=== PATIENT | female | born 1935 | race Caucasian/White ===

== ENCOUNTER → 2016-06-24 | Outpatient (CLI) | payer BC ==
[~2016-06-24] MED LIST: ADVIN25050 INH; ALBUAER2 INH; ASPEC81 PO; CHOL20009 PO; EFF75 PO; FAMO20TA11 PO; LEVO75TA5 PO; LPT40 PO; LSN5 PO; METO50TA17 PO; OMEG10007 PO; PLV75 PO; XNX5 PO
[2016-06-24 14:31] LABS: HEMATOCRIT 39.6 % (37-47); MEAN CELL VOLUME 87.8 fL (80-100); MEAN CORPUSCULAR HGB CONC 33.1 g/dl (32-36); MEAN PLATELET VOLUME 11.3 fL (7.4-10.4); PLATELET COUNT 285 K/uL (130-400); RED BLOOD COUNT 4.51 M/uL (4.2-5.4); WHITE BLOOD COUNT 7.97 K/uL (4.8-10.8)
[2016-06-24 15:09] LABS: ALT/SGPT 29 U/L (12-78); AST/SGOT 22 U/L (15-37); BLOOD UREA NITROGEN 14 mg/dl (7-18); CALCIUM 8.3 mg/dl (8.5-10.1); CARBON DIOXIDE 27 mmol/L (21-32); CHLORIDE 107 mmol/L (98-107); CREATININE 0.88 mg/dl (0.60-1.20); GLUCOSE 86 mg/dl (70-99); SODIUM 142 mmol/L (136-145)
[2016-06-24 15:12] LABS: ALB/GLOB RATIO 1.1 (0.9-2); ALKALINE PHOSPHATASE 138 U/L (45-117)
== END | disposition home or self-care (01) ==
LOC: C.LAB1850 13:46
PROVIDERS: ATTEND Physician Assistant
DX: I25.10 Atherosclerotic heart disease of native coronary artery without angina pectoris (principal)

== ENCOUNTER → 2016-07-24 | Outpatient (CLI) | payer BC ==
[2016-07-24 09:50] LABS: CHOLESTEROL/HDL RATIO 3.8; THYROID STIMULATING HORMONE 2.89 uIu/ml (0.300-4.500)
== END | disposition home or self-care (01) ==
LOC: C.LAB1850 08:37
PROVIDERS: ATTEND Internal Medicine
DX: E03.9 Hypothyroidism, unspecified (principal); E78.5 Hyperlipidemia, unspecified

== ENCOUNTER → 2017-01-07 | Outpatient (CLI) | payer BC ==
[2017-01-07 12:24] LABS: BASO % 0.4 %; BASO ABS # 0.03 K/uL (0-0.2); COMPLETE YES; HEMATOCRIT 40.4 % (37-47); IG% 0.4 %; LYMPH % 20.4 %; LYMPH ABS # 1.66 K/uL (1.2-3.4); MEAN CELL VOLUME 88.4 fL (80-100); MEAN CORPUSCULAR HEMOGLOBIN 29.8 pg (25-34); MEAN CORPUSCULAR HGB CONC 33.7 g/dl (32-36); MEAN PLATELET VOLUME 11.3 fL (7.4-10.4); MONO % 8.4 %; NEUT % 67.4 %; PLATELET COUNT 212 K/uL (130-400); RED BLOOD COUNT 4.57 M/uL (4.2-5.4); WHITE BLOOD COUNT 8.13 K/uL (4.8-10.8)
[2017-01-07 13:26] LABS: ALT/SGPT 26 U/L (12-78); BLOOD UREA NITROGEN 18 mg/dl (7-18); BUN/CREATININE RATIO 20.1 (10-20); CALCIUM 9.2 mg/dl (8.5-10.1); CARBON DIOXIDE 25 mmol/L (21-32); CHLORIDE 105 mmol/L (98-107); CHOLESTEROL 143 mg/dl (0-200); CREATININE 0.87 mg/dl (0.60-1.20); GLUCOSE 93 mg/dl (70-99); POTASSIUM 4.4 mmol/L (3.5-5.1); SODIUM 138 mmol/L (136-145); TRIGLYCERIDES 165 mg/dl (0-150); VERY LOW DENSITY LIPOPROT CALC 33 mg/dl
[2017-01-07 13:36] LABS: ALB/GLOB RATIO 1.2 (0.9-2); ALKALINE PHOSPHATASE 123 U/L (45-117); AST/SGOT 25 U/L (15-37); CHOLESTEROL/HDL RATIO 3.3; HDL CHOLESTEROL 43 mg/dl; LDL CHOLESTEROL CALCULATED 67 mg/dl
== END | disposition home or self-care (01) ==
LOC: C.LAB1850 10:00
PROVIDERS: ATTEND Physician Assistant Medical
DX: I25.10 Atherosclerotic heart disease of native coronary artery without angina pectoris (principal); E03.9 Hypothyroidism, unspecified; E78.5 Hyperlipidemia, unspecified; I10 Essential (primary) hypertension

== ENCOUNTER → 2017-05-21 | Outpatient (CLI) | payer BC ==
[2017-05-21 09:35] LABS: HEMOGLOBIN 13.3 g/dL (12.0-16.0); MEAN CELL VOLUME 86.2 fL (80-100); MEAN CORPUSCULAR HEMOGLOBIN 28.7 pg (25-34); MEAN CORPUSCULAR HGB CONC 33.3 g/dl (32-36); PLATELET COUNT 289 K/uL (130-400); RED CELL DISTRIBUTION WIDTH CV 13.8 % (11.5-14.5); WHITE BLOOD COUNT 7.68 K/uL (4.8-10.8)
[2017-05-21 10:09] LABS: BLOOD UREA NITROGEN 14 mg/dl (7-18); CALCIUM 8.4 mg/dl (8.5-10.1); CARBON DIOXIDE 26 mmol/L (21-32); CHOLESTEROL 136 mg/dl (0-200); CREATININE 0.87 mg/dl (0.60-1.20); GLUCOSE 99 mg/dl (70-99); SODIUM 138 mmol/L (136-145)
[2017-05-21 10:20] LABS: LDL CHOLESTEROL CALCULATED 62 mg/dl
== END | disposition home or self-care (01) ==
LOC: C.LAB1850 08:33
PROVIDERS: ATTEND Internal Medicine
DX: I25.10 Atherosclerotic heart disease of native coronary artery without angina pectoris (principal); E03.9 Hypothyroidism, unspecified; I10 Essential (primary) hypertension; M25.50 Pain in unspecified joint

== ENCOUNTER → 2017-11-05 | Outpatient (CLI) | payer BC ==
[~2017-11-05] MED LIST changes: -ASPEC81 PO; +ASPI-320 PO; +LISI-730 PO; -LSN5 PO
== END | disposition home or self-care (01) ==
LOC: C.LABBFT 07:45
PROVIDERS: ATTEND Internal Medicine
DX: R39.15 Urgency of urination (principal)

== ENCOUNTER 2018-03-21 10:34 | Observation (INO) ==
[2018-03-21] MEDS ORDERED: ONDANSETRON INJ 2 MG/ML 2 ML VIAL IV STA (10:59)
[2018-03-21] MEDS ORDERED: KETOROLAC TROMETHAMINE 15 MG/ML VIAL IV STA (11:03)
[2018-03-21] MEDS ORDERED: SODIUM CHLORIDE 0.9% 1000ML 500 ML IV ONE (11:03)
--- NOTE | 2018-03-21 11:47 | Emergency Department Note ---
Entered by [place] acting as a scribe for Huber Webber DO History of Present Illness General Chief complaint: Illness Stated complaint: STOMACH SICK, JOINTS HURT, HEAD HURTS/PRESSURE Time Seen by Provider: 03/21/18 10:56 Source: patient History of Present Illness Onset (ago): day(s) (last night) Location: head, abdomen, upper extremity (joints) and lower extremity (joints) Pain Consistency: + constant Quality: + other (headaches, body/joint aches) Associated symptoms: + nausea/vomiting and + other (abdominal pain) The patient is an 82 year old female who presents to the Emergency Room with complaints of a constant �splitting� headache and body/joint aches beginning last night. The patient also reports diffuse abdominal pain, nausea and vomiting beginning last night that she is still experiencing. She notes subjective low-grade fevers. She denies chest pain or cough but does note that she is clearing her throat frequently. She states that she has chronically been short of breath for the past couple years. She states that she tried Kary-Bessy , peppermint, and Gatorade but has not seen a physician. She also notes that she took a dose of prescribed tramadol last night. She states that she has been drinking fluids but only ate two crackers today. She reports that she was started on a Macrobid prescription for a UTI yesterday, noting that she has taken two doses. She reports a history of hiatal hernia, hysterectomy, and cholecystectomy. She states that her PCP is Dr. Pro April Tesfaye. Home Medications Home Medications Medication Instructions Recorded Confirmed Type albuterol sulfate [Ventolin HFA] 2 puff INHALATION DAILY PRN 03/21/18 03/21/18 History aspirin 81 mg PO QAM 03/21/18 03/21/18 History atorvastatin 40 mg PO QAM 03/21/18 03/21/18 History clopidogrel 75 mg PO QAM 03/21/18 03/21/18 History fluticasone-salmeterol [Advair 1 puff INHALATION BID 03/21/18 03/21/18 History Diskus] levothyroxine 100 mcg PO QAM 03/21/18 03/21/18 History lisinopril 5 mg PO QAM 03/21/18 03/21/18 History metoprolol succinate 50 mg PO BID 03/21/18 03/21/18 History omega [id number] oil [Fish Oil] 1 cap PO QAM 03/21/18 03/21/18 History omeprazole 20 mg PO QAM 03/21/18 03/21/18 History venlafaxine 75 mg PO 1630 03/21/18 03/21/18 History Allergies Allergy/AdvReac Type Severity Reaction Status Date / Time amoxicillin Allergy Intermediate RASH-ITCHIN Verified 03/21/18 11:23 G Penicillins Allergy Intermediate RASH-ITCHIN Verified 03/21/18 11:23 G Past Med/Surg History Social History Current Living Situation: Alone Other Information That Helps Us Care for You: No Feels Safe at Home: Yes Safety Concerns: Feels Safe At This Time Smoking Status: Never smoker Do You Dip or Chew Tobacco: No Second Hand Exposure: No Tobacco Cessation Education Requested by Patient: No Hx Alcohol Use: No Hx Substance Use: No Beliefs That Will Affect Care: None Preferred Language: Welsh Communication Ability: Effective Hoop Punch Operator Helper Required: No Review of Systems See HPI for pertinent positives & negatives. and A total of 10 systems reviewed and were otherwise negative Physical Exam Vital Signs Vital Signs - 24 hr 03/21/18 10:42 03/21/18 11:50 03/21/18 12:45 Temperature 36.4 C L Temperature Source Oral Sepsis Recent Fever Within 48 Hours No Sepsis New/Unexplained Change in Mental Status No Sepsis Action Taken by Nursing No Action Required Pulse Rate 96 H 85 Pulse Rate [Right Finger] 84 83 Pulse Rhythm [Right Finger] Regular Regular Pulse Strength [Right Finger] Normal Normal Respiratory Rate 17 20 20 Respiratory Effort / Characteristics Non-Labored Non-Labored Spontaneous Non-Labored Spontaneous Respiratory Depth Normal Normal Normal Respiratory Pattern Regular Regular Blood Pressure 149/71 H Blood Pressure [Left Arm] 129/69 155/81 H Blood Pressure Mean 97 Blood Pressure Mean [Left Arm] 89 105 Blood Pressure Position Sitting Blood Pressure Position [Left Arm] Sitting Sitting Pulse Oximetry 94 94 94 Oxygen Delivery Method Room Air Room Air Nasal Cannula Oxygen Flow Rate 2 03/21/18 12:47 03/21/18 14:00 03/21/18 14:15 Temperature Temperature Source Sepsis Recent Fever Within 48 Hours Sepsis New/Unexplained Change in Mental Status Sepsis Action Taken by Nursing Pulse Rate Pulse Rate [Right Finger] 83 77 Pulse Rhythm [Right Finger] Regular Regular Pulse Strength [Right Finger] Normal Normal Respiratory Rate 20 20 Respiratory Effort / Characteristics Non-Labored Spontaneous Non-Labored Spontaneous Respiratory Depth Normal Normal Respiratory Pattern Regular Regular Blood Pressure Blood Pressure [Left Arm] 155/81 H 124/66 Blood Pressure Mean Blood Pressure Mean [Left Arm] 105 85 Blood Pressure Position Blood Pressure Position [Left Arm] Sitting Sitting Pulse Oximetry 94 98 Oxygen Delivery Method Nasal Cannula Nasal Cannula Nasal Cannula Oxygen Flow Rate 2 2 2 03/21/18 15:06 Temperature 36.4 C L Temperature Source Oral Sepsis Recent Fever Within 48 Hours Sepsis New/Unexplained Change in Mental Status Sepsis Action Taken by Nursing Pulse Rate Pulse Rate [Right Finger] 77 Pulse Rhythm [Right Finger] Pulse Strength [Right Finger] Respiratory Rate 20 Respiratory Effort / Characteristics Respiratory Depth Respiratory Pattern Blood Pressure Blood Pressure [Left Arm] 134/76 Blood Pressure Mean Blood Pressure Mean [Left Arm] 95 Blood Pressure Position Blood Pressure Position [Left Arm] Pulse Oximetry 98 Oxygen Delivery Method Nasal Cannula Oxygen Flow Rate 2 GENERAL: Patient is awake alert in no acute distress patient is resting comfortably and showing no signs of anxiety EYES: The conjunctivae are clear. The pupils are round and reactive. EARS, NOSE, MOUTH AND THROAT: The nose is without any evidence of any deformity. Mucous membranes are moist tongue is midline NECK: The neck is nontender and supple. RESPIRATORY: Normal respiratory effort is noted there is no evidence of wheezing rhonchi or rales CARDIOVASCULAR: Regular rate and rhythm noted there no murmurs rubs or gallops normal S1 normal S2 GASTROINTESTINAL: The abdomen is soft. Bowel sounds are present in all quadrants. Abdomen is nontender MUSCULOSKELETAL/EXTREMITIES: There is no evidence of gross deformity full range of motion is noted in the hips and shoulders SKIN: There is no obvious evidence of any rash. There are no petechiae, pallor or cyanosis noted. NEUROLOGIC: Patient is awake alert and oriented x3 strength is symmetric patellar reflexes are 2+ bilaterally Course 1058: Past medical records reviewed. The patient was evaluated in room C5, and a complete history and physical examination were performed. 1153: The patient states that her pain has not significantly improved. 1300: I updated the patient on current results. 1342: Dr. Ramirez - [facility] Hospitalist was notified of the patient�s condition and will evaluate the patient for hospitalization. Consultations Consultation #1: Dr. Ramirez - [facility] Hospitalist was notified of the patient�s condition and will evaluate the patient for hospitalization. Time: 13:42 Administered Medications Heparin Sodium (Porcine) (Heparin Sodium (Porcine)) 5,000 units SQ Q8 ENRIQUE Stop: 04/20/18 15:29 Last Admin: 03/21/18 16:00 Dose: 5,000 units Sodium Chloride (Nss 1000ml) 1,000 mls @ 80 mls/hr IV .[id number] ENRIQUE Stop: 03/22/18 03:49 Last Admin: 03/21/18 15:33 Dose: 80 mls/hr Venlafaxine HCl (Effexor Extended Release) 75 mg PO DAILY@1630 ENRIQUE Stop: 04/20/18 16:29 Last Admin: 03/21/18 15:40 Dose: 75 mg Discontinued Medications Sodium Chloride (Nss 1000ml) 500 mls @ 999 mls/hr IV .Q31M ONE Stop: 03/21/18 11:33 Last Infusion: 03/21/18 13:12 Dose: Admin: 03/21/18 11:22 Dose: 999 mls/hr Promethazine HCl 12.5 mg/ (Sodium Chloride) 50.5 mls @ 204 mls/hr IV NOW STA Stop: 03/21/18 12:36 Last Infusion: 03/21/18 12:49 Dose: Admin: 03/21/18 12:31 Dose: 204 mls/hr Ceftriaxone Sodium (Rocephin) 1,000 mg in 50 mls @ 100 mls/hr IV NOW STA Stop: 03/21/18 13:22 Last Infusion: 03/21/18 15:21 Dose: 0 mls/hr Admin: 03/21/18 13:17 Dose: 100 mls/hr Ioversol (Optiray 320 100ml) 94 ml IV ONCE PRN PRN Reason: Interaction Checking Stop: 03/25/18 13:10 Last Admin: 03/21/18 13:12 Dose: 94 ml Ketorolac Tromethamine (Toradol) 15 mg IV NOW STA Stop: 03/21/18 11:04 Last Admin: 03/21/18 11:28 Dose: 15 mg Morphine Sulfate (Morphine Sulfate) 4 mg IV NOW STA Stop: 03/21/18 11:56 Last Admin: 03/21/18 12:00 Dose: 4 mg Ondansetron HCl (Zofran) 4 mg IV NOW STA Stop: 03/21/18 11:00 Last Admin: 03/21/18 11:22 Dose: 4 mg Medical Decision Making Differential Diagnosis Differential diagnosis: Etiologies such as appendicitis, diverticulitis, PUD, biliary pathology, UTI, pancreatitis, obstruction, mesenteric ischemia, aortic pathology, infections, inflammatory bowel disease, renal colic, as well as others were entertained. Medical Records Attestation: I reviewed the patient's medical records. Home Medications Current Medication List: was personally reviewed by me Laboratory Data Attestation: I reviewed the patient's lab results. Result diagrams: 03/21/18 11:15 03/21/18 11:15 Lab Results 03/21/18 03/21/18 03/21/18 Range/Units 11:11 11:15 11:15 WBC 21.46 H (4.8-10.8) K/uL RBC 4.59 (4.2-5.4) M/uL Hgb 13.1 (12.0-16.0) g/dL Hct 40.6 (37-47) % MCV 88.5 (80-100) fL MCH 28.5 (25-34) pg MCHC 32.3 (32-36) g/dL RDW Std Deviation 43.9 (36.4-46.3) fL RDW Coeff of Juan Manuel 13.6 (11.5-14.5) % Plt Count 197 (130-400) K/uL MPV (7.4-10.4) fL Immature Gran % (Auto) 0.2 % Neut % (Auto) 89.8 % Lymph % (Auto) 4.6 % [place] % (Auto) 3.5 % Eos % (Auto) 1.7 % Baso % (Auto) 0.2 % Immature Gran # (Auto) 0.05 H (0.00-0.02) K/uL Neut # (Auto) 19.03 H (1.4-6.5) K/uL Lymph # (Auto) 0.98 L (1.2-3.4) K/uL [place] # (Auto) 0.75 H (0.11-0.59) K/uL Eos # (Auto) 0.37 (0-0.5) K/uL Baso # (Auto) 0.04 (0-0.2) K/uL ESR (0-21) mm/hr PT 10.2 (9.0-12.0) Seconds INR 1.0 (0.9-1.1) Sodium 133 L (136-145) mmol/L Potassium 4.1 (3.5-5.1) mmol/L Chloride 101 (98-107) mmol/L Carbon Dioxide 27 (21-32) mmol/L Anion Gap 5.0 (3-11) BUN 15 (7-18) mg/dl Creatinine 0.82 (0.6-1.2) mg/dl Est Cr Clr Drug Dosing 63.9 ml/min Est GFR ( Amer) 78.3 Est GFR (Non-Af Amer) 67.6 BUN/Creatinine Ratio 18.3 (10-20) Glucose 139 H (70-99) mg/dl Calcium 8.4 L (8.5-10.1) mg/dl Total Bilirubin 0.7 (0.1-1) mg/dl AST 24 (15-37) U/L ALT 30 (12-78) U/L Alkaline Phosphatase 111 (45-117) U/L Total Creatine Kinase 123 (26-192) U/L Troponin I < 0.015 (0-0.045) ng/ml C-Reactive Protein 2.36 H (0-0.29) mg/dl Total Protein 7.5 (6.4-8.2) gm/dl Albumin 3.7 (3.4-5.0) gm/dl Globulin 3.8 (2.5-4.0) gm/dl Albumin/Globulin Ratio 1.0 (0.9-2) TSH 0.531 (0.300-4.500) uIu/ml Urine Color Urine Appearance (Clear) Urine pH (4.5-7.5) Ur Specific [place] (1.000-1.030) Urine Protein (Negative) Urine Glucose (UA) (Negative) Urine Ketones (Negative) Urine Blood (Negative) Urine Nitrite (Negative) Urine Bilirubin (Negative) Urine Urobilinogen (Negative) Ur Leukocyte Esterase (Negative) Urine WBC (Auto) (0-5) /hpf Urine RBC (Auto) (0-4) /hpf U Hyaline Cast (Auto) (0-5) /lpf U Epithel Cells (Auto) (0-5) /lpf Urine Bacteria (Auto) (Negative) 03/21/18 03/21/18 03/21/18 Range/Units 11:15 11:15 11:15 WBC (4.8-10.8) K/uL RBC (4.2-5.4) M/uL Hgb (12.0-16.0) g/dL Hct (37-47) % MCV (80-100) fL MCH (25-34) pg MCHC (32-36) g/dL RDW Std Deviation (36.4-46.3) fL RDW Coeff of Juan Manuel (11.5-14.5) % Plt Count (130-400) K/uL MPV (7.4-10.4) fL Immature Gran % (Auto) % Neut % (Auto) % Lymph % (Auto) % [place] % (Auto) % Eos % (Auto) % Baso % (Auto) % Immature Gran # (Auto) (0.00-0.02) K/uL Neut # (Auto) (1.4-6.5) K/uL Lymph # (Auto) (1.2-3.4) K/uL [place] # (Auto) (0.11-0.59) K/uL Eos # (Auto) (0-0.5) K/uL Baso # (Auto) (0-0.2) K/uL ESR 12 (0-21) mm/hr PT (9.0-12.0) Seconds INR (0.9-1.1) Sodium (136-145) mmol/L Potassium (3.5-5.1) mmol/L Chloride (98-107) mmol/L Carbon Dioxide (21-32) mmol/L Anion Gap (3-11) BUN (7-18) mg/dl Creatinine (0.6-1.2) mg/dl Est Cr Clr Drug Dosing ml/min Est GFR ( Amer) Est GFR (Non-Af Amer) BUN/Creatinine Ratio (10-20) Glucose (70-99) mg/dl Calcium (8.5-10.1) mg/dl Total Bilirubin (0.1-1) mg/dl AST (15-37) U/L ALT (12-78) U/L Alkaline Phosphatase (45-117) U/L Total Creatine Kinase (26-192) U/L Troponin I (0-0.045) ng/ml C-Reactive Protein Cancelled (0-0.29) mg/dl Total Protein (6.4-8.2) gm/dl Albumin (3.4-5.0) gm/dl Globulin (2.5-4.0) gm/dl Albumin/Globulin Ratio (0.9-2) TSH (0.300-4.500) uIu/ml Urine Color Yellow Urine Appearance Clear (Clear) Urine pH 8.0 H (4.5-7.5) Ur Specific [place] 1.020 (1.000-1.030) Urine Protein Negative (Negative) Urine Glucose (UA) Negative (Negative) Urine Ketones Negative (Negative) Urine Blood Negative (Negative) Urine Nitrite Negative (Negative) Urine Bilirubin Negative (Negative) Urine Urobilinogen Negative (Negative) Ur Leukocyte Esterase 1+ H (Negative) Urine WBC (Auto) 10-30 H (0-5) /hpf Urine RBC (Auto) 5-10 H (0-4) /hpf U Hyaline Cast (Auto) 1-5 (0-5) /lpf U Epithel Cells (Auto) >30 H (0-5) /lpf Urine Bacteria (Auto) 1+ H (Negative) Imaging Data Radiologist's Impression: Radiology results as stated below per my review and the radiologist's interpretation: CT abd pelvis IV con only CLINICAL HISTORY: 82 years-old Female presenting with pain and vomiting. TECHNIQUE: Multidetector CT of the abdomen and pelvis was performed after the administration of intravenous contrast. IV contrast: 94 mL of Optiray 320. A dose lowering technique was used consistent with the principles of ALARA (as low as reasonably achievable). COMPARISON: 11/19/2015. CT DOSE (mGy.cm): The estimated cumulative dose is 1284.90 mGy.cm. FINDINGS: Char Dust Cleaner And Salvager topogram: Cholecystectomy clips. Lung bases: Minimal dependent changes likely atelectasis. Normal heart size. No pericardial or pleural effusion. Liver: Normal morphology. Possible hemangioma along the posterior aspect of the left hepatic lobe versus perfusional variation. Geographic hepatic steatosis suggested in the right hepatic lobe, new from prior. Patent hepatic vasculature. Biliary: Mild biliary ductal prominence likely a reservoir effect in the post cholecystectomy state. Gallbladder surgically absent. Pancreas: Moderate parenchymal atrophy. Spleen: Normal. Adrenal glands: Normal. Kidneys and ureters: Normal. No hydronephrosis. Bladder: Incompletely evaluated secondary to underdistention. Pelvic organs: Uterus surgically absent. Bowel: Few diverticula in the distal sigmoid colon without associated inflammatory change. The appendix is normal. No bowel obstruction. Moderate hiatal hernia. Peritoneal cavity: No free fluid or intraperitoneal gas. Lymph nodes: No enlarged lymph nodes in the abdomen or pelvis. Vasculature: Atherosclerosis of the normal caliber abdominal aorta. IVC patent. Abdominal wall: Small fat-containing umbilical hernia. Musculoskeletal: Degenerative changes of the spine. Superior endplate compression deformity with anterior vertebral body height loss of T12 consistent with a moderate compression fracture. This is unchanged from prior. Osteopenia suggested. IMPRESSION: 1. No acute intra-abdominal pathology. 2. Possible hepatic steatosis and a geographic distribution in the right hepatic lobe. 3. Limited diverticulosis without evidence of diverticulitis. Electronically signed by: Bam Chin M.D. 03/21/2018 1:20 PM XR chest 1V portable CLINICAL HISTORY: 82 years-old Female presenting with weakness. TECHNIQUE: PA view of the chest were obtained. COMPARISON: 11/20/2015. FINDINGS: Atherosclerosis of the aortic arch. Cardiac silhouette mildly enlarged. Diffusely coarsened lung markings. Added density of the mid to lower lungs. Prominence of the bilateral paulie and pulmonary vasculature. No large effusion or pneumothorax. Osseous structures normal. Hiatal hernia suspected. Cholecystectomy clips. IMPRESSION: 1. Mild cardiomegaly with volume overload. 2. Prominence of the bilateral paulie may be vascular in etiology given the presence of pulmonary artery hypertension on prior CTA from 2016. 3. Suspected underlying chronic lung disease. Added density of the lungs may relate to overlapping soft tissue though developing edema is difficult to exclude. 4. Hiatal hernia. Electronically signed by: Bam Chin M.D. 03/21/2018 12:[address] head/brain wo con CLINICAL HISTORY: 82 years-old Female presenting with GARDINER and weakness. TECHNIQUE: Multidetector CT imaging of the head was performed without the use of intravenous contrast. IV contrast: None. A dose lowering technique was used consistent with the principles of ALARA (as low as reasonably achievable). COMPARISON: None. CT DOSE (mGy.cm): The estimated cumulative dose is 537.48 mGy.cm. FINDINGS: Char Dust Cleaner And Salvager topogram: Unremarkable. Ventricles and sulci normal in size. No hemorrhage. Periventricular and subcortical white matter hypoattenuation, nonspecific but likely indicative of chronic small vessel ischemic change. No acute territorial infarct. No mass effect or midline shift. No extra-axial fluid collection. Paranasal sinuses and mastoid air cells clear. Calvarium intact. IMPRESSION: 1. Chronic small vessel ischemic change. No acute intracranial abnormality. Electronically signed by: Bam Chin M.D. 03/21/2018 11:49 AM XR KUB CLINICAL HISTORY: 82 years-old Female presenting with vomiting. TECHNIQUE: Single supine view of the abdomen was obtained. COMPARISON: CT from 11/19/2015. FINDINGS: Cholecystectomy clips noted. Moderate stool burden throughout the right colon. Posterior small bowel gas, nonspecific. Nonobstructive bowel gas pattern. No gross pneumoperitoneum allowing for supine technique. Allowing for bowel gas and stool, no calcifications to suggest nephrolithiasis. Osseous structures normal. Lung bases clear. IMPRESSION: 1. Stool burden may suggest constipation. No gross evidence of bowel obstruction or free air. Electronically signed by: Bam Chin M.D. 03/21/2018 12:27 PM ECG Data Attestation: I personally reviewed and interpreted this ECG as follows: Indication: nausea Rate (beats per minute): 87 Rhythm: normal sinus Findings: + LBBB; no ectopy Comparison ECG Date: from (11/21/15) Change: no significant change Blood Pressure Blood Pressure Findings: Elevated blood pressure Blood Pressure Disposition: further management by hospitalist [facility] The patient is an 82-year-old female who presented to the emergency department for an evaluation of headache nausea vomiting and body aches. The patient was seen recently and started on Macrobid for urinary tract infection. The patient' s history and physical initially was very confusing. I was unsure if her nausea was a central nervous system type of nausea or GI type of nausea. The patient was treated with IV fluids and IV antiemetics. On subsequent reevaluation she started having more abdominal discomfort. I reviewed the patient's laboratory studies did reveal that she has signs of urinary tract infection despite being on Macrobid. For this reason she was further treated with IV antibiotics. I discussed the patient's laboratory and radiographic studies with her. She was found to have a very elevated white blood cell count. Given her recent antibiotic use for this persistent urinary tract infection I discussed her case with the on-call [facility] hospitalist for possible inpatient management of this infection. Impression & Plan Pyelonephritis, Nausea and vomiting, Abdominal pain Discharge Plan Visit Data *Final* Discharge Date/Time: 03/21/18 14:47 Chief Complaint: Illness Stated Complaint: STOMACH SICK, JOINTS HURT, HEAD HURTS/PRESSURE ED Provider: Huber Webber Discharge Problem: Pyelonephritis, Nausea and vomiting, Abdominal pain Patient Disposition: Admitted As Inpatient Discharge Instructions Interventions: ED Discharge Assessment Last Done: 03/21/18 14:47 The scribe's documentation has been prepared under my direction and personally reviewed by me in its entirety. I confirm that the note above accurately reflects all work, treatment, procedures, and medical decision making performed by me.
--- NOTE | 2018-03-21 11:50 | CT Scan Report ---
CT head/brain wo con CLINICAL HISTORY: 82 years-old Female presenting with GARDINER and weakness. TECHNIQUE: Multidetector CT imaging of the head was performed without the use of intravenous contrast . IV contrast: None. A dose lowering technique was used consistent with the principles of ALARA (as l ow as reasonably achievable). COMPARISON: None. CT DOSE (mGy.cm): The estimated cumulative dose is 537.48 mGy.cm. FINDINGS: Pelt Dropper topogram: Unremarkable. Ventricles and sulci normal in size. No hemorrhage. Periventricular and subcortical white matter hypo attenuation, nonspecific but likely indicative of chronic small vessel ischemic change. No acute terr itorial infarct. No mass effect or midline shift. No extra-axial fluid collection. Paranasal sinuses and mastoid air cells clear. Calvarium intact. IMPRESSION: 1. Chronic small vessel ischemic change. No acute intracranial abnormality. Electronically signed by: Bam Chin M.D. 03/21/2018 11:49 AM
[2018-03-21 11:52] LABS: Prothrombin Time 10.2 Seconds (9.0-12.0)
[2018-03-21] MEDS ORDERED: MoRPHine SULFATE 4 MG/ML 1 ML CARP\\VIAL IV STA (11:55)
[2018-03-21 11:57] LABS: Alanine Aminotransferase 30 U/L (12-78); Albumin Level 3.7 gm/dl (3.4-5.0); Aspartate Aminotransferase 24 U/L (15-37); BUN Creatinine Ratio 18.3 (10-20); Blood Urea Nitrogen 15 mg/dl (7-18); Calcium 8.4 mg/dl (8.5-10.1); Carbon Dioxide 27 mmol/L (21-32); Chloride 101 mmol/L (98-107); Creatinine Clr Calc Pharmacy 63.9 ml/min; Est GFR (African American) 78.3; Est GFR (Non-African American) 67.6; Glucose 139 mg/dl (70-99); Potassium 4.1 mmol/L (3.5-5.1); Sodium 133 mmol/L (136-145)
[2018-03-21 11:58] LABS: Hematocrit (blood only) 40.6 % (37-47); Hemoglobin 13.1 g/dL (12.0-16.0); Mean Corpuscular Hgb Conc 32.3 g/dL (32-36); Mean Corpuscular Volume 88.5 fL (80-100); RDW Coefficient of Variation 13.6 % (11.5-14.5); RDW Standard Deviation 43.9 fL (36.4-46.3); Red Blood Count 4.59 M/uL (4.2-5.4); White Blood Count 21.46 K/uL (4.8-10.8)
[2018-03-21 12:08] LABS: Alkaline Phosphatase 111 U/L (45-117); Bilirubin,Total 0.7 mg/dl (0.1-1); C Reactive Protein 2.36 mg/dl (0-0.29); Creatine Kinase 123 U/L (26-192); Globulin 3.8 gm/dl (2.5-4.0); Total Protein 7.5 gm/dl (6.4-8.2); Troponin I < 0.015 ng/ml (0-0.045)
[2018-03-21 12:13] LABS: Appearance Urine Clear (Clear); Bacteria Urine Automated 1+ (Negative); Bilirubin Urine Negative (Negative); Color Urine Yellow; Epithelial Cell Urine Auto >30 /lpf (0-5); Glucose Urine UA Negative (Negative); Ketones Urine Negative (Negative); Leukocyte Esterase Urine 1+ (Negative); Nitrite Urine Negative (Negative); Protein Urine Negative (Negative); Urobilinogen Urine Negative (Negative)
[2018-03-21] MEDS ORDERED: PROMETHAZINE HCL 12.5 MG in SODIUM CHLORIDE 0.9% 50 ML IV STA (12:22)
--- NOTE | 2018-03-21 12:27 | XRay Report ---
XR chest 1V portable CLINICAL HISTORY: 82 years-old Female presenting with weakness. TECHNIQUE: PA view of the chest were obtained. COMPARISON: 11/20/2015. FINDINGS: Atherosclerosis of the aortic arch. Cardiac silhouette mildly enlarged. Diffusely coarsened lung ismael ings. Added density of the mid to lower lungs. Prominence of the bilateral paulie and pulmonary vascula ture. No large effusion or pneumothorax. Osseous structures normal. Hiatal hernia suspected. Cholecys tectomy clips. IMPRESSION: 1. Mild cardiomegaly with volume overload. 2. Prominence of the bilateral paulie may be vascular in etiology given the presence of pulmonary jayda ry hypertension on prior CTA from 2016. 3. Suspected underlying chronic lung disease. Added density of the lungs may relate to overlapping s oft tissue though developing edema is difficult to exclude. 4. Hiatal hernia. Electronically signed by: Bam Chin M.D. 03/21/2018 12:26 PM
--- NOTE | 2018-03-21 12:29 | XRay Report ---
XR KUB CLINICAL HISTORY: 82 years-old Female presenting with vomiting. TECHNIQUE: Single supine view of the abdomen was obtained. COMPARISON: CT from 11/19/2015. FINDINGS: Cholecystectomy clips noted. Moderate stool burden throughout the right colon. Posterior small bowel gas, nonspecific. Nonobstructive bowel gas pattern. No gross pneumoperitoneum allowing for supine davis hnique. Allowing for bowel gas and stool, no calcifications to suggest nephrolithiasis. Osseous structures normal. Lung bases clear. IMPRESSION: 1. Stool burden may suggest constipation. No gross evidence of bowel obstruction or free air. Electronically signed by: Bam Chin M.D. 03/21/2018 12:27 PM
[2018-03-21 12:31] LABS: Platelet Count 197 K/uL (130-400)
[2018-03-21 12:40] LABS: Basophils # (auto) 0.04 K/uL (0-0.2); Basophils % (auto) 0.2 %; Eosinophils # (auto) 0.37 K/uL (0-0.5); Eosinophils % (auto) 1.7 %; Immature Granulocytes # (auto) 0.05 K/uL (0.00-0.02); Immature Granulocytes % (auto) 0.2 %; Lymphocytes # (auto) 0.98 K/uL (1.2-3.4); Lymphocytes % (auto) 4.6 %; Monocytes # (auto) 0.75 K/uL (0.11-0.59); Monocytes % (auto) 3.5 %; Neutrophils # (auto) 19.03 K/uL (1.4-6.5); Neutrophils % (auto) 89.8 %
[2018-03-21] MEDS ORDERED: cefTRIAXone SODIUM 1,000 MG/50 ML BAG IV STA (12:53)
[2018-03-21] MEDS ORDERED: IOVERSOL 100ml IV PRN (13:11)
--- NOTE | 2018-03-21 13:22 | CT Scan Report ---
CT abd pelvis IV con only CLINICAL HISTORY: 82 years-old Female presenting with pain and vomiting. TECHNIQUE: Multidetector CT of the abdomen and pelvis was performed after the administration of intra venous contrast. IV contrast: 94 mL of Optiray 320. A dose lowering technique was used consistent wit h the principles of ALARA (as low as reasonably achievable). COMPARISON: 11/19/2015. CT DOSE (mGy.cm): The estimated cumulative dose is 1284.90 mGy.cm. FINDINGS: Installation Helper topogram: Cholecystectomy clips. Lung bases: Minimal dependent changes likely atelectasis. Normal heart size. No pericardial or pleura l effusion. Liver: Normal morphology. Possible hemangioma along the posterior aspect of the left hepatic lobe penny yovany perfusional variation. Geographic hepatic steatosis suggested in the right hepatic lobe, new from prior. Patent hepatic vasculature. Biliary: Mild biliary ductal prominence likely a reservoir effect in the post cholecystectomy state. Gallbladder surgically absent. Pancreas: Moderate parenchymal atrophy. Spleen: Normal. Adrenal glands: Normal. Kidneys and ureters: Normal. No hydronephrosis. Bladder: Incompletely evaluated secondary to underdistention. Pelvic organs: Uterus surgically absent. Bowel: Few diverticula in the distal sigmoid colon without associated inflammatory change. The append ix is normal. No bowel obstruction. Moderate hiatal hernia. Peritoneal cavity: No free fluid or intraperitoneal gas. Lymph nodes: No enlarged lymph nodes in the abdomen or pelvis. Vasculature: Atherosclerosis of the normal caliber abdominal aorta. IVC patent. Abdominal wall: Small fat-containing umbilical hernia. Musculoskeletal: Degenerative changes of the spine. Superior endplate compression deformity with ante rior vertebral body height loss of T12 consistent with a moderate compression fracture. This is uncha nged from prior. Osteopenia suggested. IMPRESSION: 1. No acute intra-abdominal pathology. 2. Possible hepatic steatosis and a geographic distribution in the right hepatic lobe. 3. Limited diverticulosis without evidence of diverticulitis. Electronically signed by: Bam Chin M.D. 03/21/2018 1:20 PM
--- NOTE | 2018-03-21 14:41 | History & Physical Report ---
Date of Service March 21, 2018 Assessment & Plan (1) Abdominal pain: 82 y/o F Hx CAD - DC 2016, HTN, HLD, hypothyroid, asthma, hiatal hernia. The pt is currently being treated for a UTI. She presents with a primary complaint of abdominal pain and distention. She had also complained of a headache although this resolved with NSAIDS. A relative at bedside reports that she has had difficulty tolerating any food over the past few days due to bloating and pain after she eats. She describes nausea and had one episode of vomiting - denies diarrhea/constipation of fevers. Initial labs are notable for leukocytosis and a marginally (+) UA which may represent a partially treated UTI. On review of previous records, she presented in a similar manner in 2016 when she was diagnosed with an inferior DC. Her abdominal pain was thought to be an anginal equivalent. 1) Abdominal pain, bloating, N/V. This appears to be a recurrent issue and may ultimately be related to a hiatal hernia or possibly gastroparesis. Considering she had a similar presentation when she suffered an inferior DC, we will trend her troponin cont ASA, Plavix, B dee and Lipitor. Provided this is not a cardiac isssue, she may need referral to GI. 2) UTI - may be incompletely treated with Nitorfurantoin. She has leukocytosis without an additional apparent souce. We phave placed her on Ceftriaxone pending cultures. 3) HTN, HLD - cont Metoprolol, Lisinopril, Metoprolol, Atorvastatin 4) Hypothyroid - cont Synthroid Full code - Heparin prophylaxis Total time for this admit including review of labs, meds, imaging, records - discussion with pt and ER attending - 37 min Present on Admission?: Yes History of Present Illness Chief Complaint: Abdominal pain Primary Care Provider: Huber Gaviria MD 82 y/o F Hx CAD - DC 2016, HTN, HLD, hypothyroid, asthma, hiatal hernia. The pt is currently being treated for a UTI. She presents with a primary complaint of abdominal pain and distention. She had also complained of a headache although this resolved with NSAIDS. A relative at bedside reports that she has had difficulty tolerating any food over the past few days due to bloating and pain after she eats. She describes nausea and had one episode of vomiting - denies diarrhea/constipation of fevers. Initial labs are notable for leukocytosis and a marginally (+) UA which may represent a partially treated UTI. On review of previous records, she presented in a similar manner in 2016 when she was diagnosed with an inferior DC. Her abdominal pain was thought to be an anginal equivalent. PMH: 1) CAD - inferior DC 2016 - JAYLE[facility] to [facility] 2) HTN 3) Hiatal hernia 4) HLD 5) Obesity 6) Hypothyroid 7) Asthma 8) LBBB 9) Cervical spinal stenosis 10) Social: She does not drink or smoke Family: Reports her brother had CAD Allergies Allergy/AdvReac Type Severity Reaction Status Date / Time amoxicillin Allergy Intermediate RASH-ITCHIN Verified 03/21/18 11:23 G Penicillins Allergy Intermediate RASH-ITCHIN Verified 03/21/18 11:23 G Home Medications Home Medications Medication Instructions Recorded Confirmed Type albuterol sulfate [Ventolin HFA] 2 puff INHALATION DAILY PRN 03/21/18 03/21/18 History aspirin 81 mg PO QAM 03/21/18 03/21/18 History atorvastatin 40 mg PO QAM 03/21/18 03/21/18 History clopidogrel 75 mg PO QAM 03/21/18 03/21/18 History fluticasone-salmeterol [Advair 1 puff INHALATION BID 03/21/18 03/21/18 History Diskus] levothyroxine 100 mcg PO QAM 03/21/18 03/21/18 History lisinopril 5 mg PO QAM 03/21/18 03/21/18 History metoprolol succinate 50 mg PO BID 03/21/18 03/21/18 History omega 9-obm-yor-fish oil [Fish Oil] 1 cap PO QAM 03/21/18 03/21/18 History omeprazole 20 mg PO QAM 03/21/18 03/21/18 History venlafaxine 75 mg PO 1630 03/21/18 03/21/18 History Past Med/Surg History Social History Current Living Situation: Alone Other Information That Helps Us Care for You: No Feels Safe at Home: Yes Safety Concerns: Feels Safe At This Time Smoking Status: Never smoker Do You Dip or Chew Tobacco: No Second Hand Exposure: No Tobacco Cessation Education Requested by Patient: No Hx Alcohol Use: No Hx Substance Use: No Beliefs That Will Affect Care: None Preferred Language: Emirati Communication Ability: Effective Health Records Technology Teacher Required: No Review of Systems General: Denies fevers, night sweats, weight loss, weight gain ENT: Denies throat pain, nasal congestion Eyes: Denies acute visual impairment, eye pain Cardiovascular: Denies CP, palpitations, PND, orthopnea Respiratory: Denies SOB, productive cough, wheezing GI: Abdominal distention, gas, bloating and pain as above : Denies dysuria, hesitancy, frequency, hematuria Neuro: Denies lightheadedness, syncope, unilateral weakness, acute loss of balance, memory loss - reported a headache on arrival Endocrine: Denies polydypsia, polyuria Heme: Denies unexplained bruising Skin: Denies acute rash or ulcers Physical Exam 2 Vital Signs (Past 24 Hours): Last Vital Signs Temp 36.4 C L 03/21/18 10:42 Pulse 83 03/21/18 12:47 Resp 20 03/21/18 12:47 BP 155/81 H 03/21/18 12:47 Pulse Ox 94 03/21/18 12:47 Physical Exam: General: AAO x 3, no distress ENT: No erythema or exudates, no thrush Eyes: PERNELL, EOMI Head and neck: Normocephalic, atruamatic, No JVD, neck is supple. Chest/heart: Nontender, S1,2, RRR, no murmurs, no gallops Lungs: CTAB, no wheezing or crackles Abdomen: Abdominal distention and mild tenderness to palpation - no guarding Neuro: AAO x 3, speech is clear, no unilateral weakness or loss of sensation, coordination intact Musculoskeletal: No joint inflammation, muscle tenderness, FROM Skin: No acute rashes or ulcers Extremities: No clubbing, cyanosis - minimal BL edema Results & Data Diagnostic Findings CT abdomen: No acute findings CT head: No acute abnormalities EKG: LBBB _ (1) Abdominal pain Abdominal location: generalized Qualified Code(s): R10.84 - Generalized abdominal pain
[2018-03-21] MEDS ORDERED: MAGNESIUM HYDROXIDE SUSP 30 ML UDC PO PRN (15:15)
[2018-03-21] MEDS ORDERED: ACETAMINOPHEN 325 MG TAB PO PRN (15:15)
[2018-03-21] MEDS ORDERED: NITROGLYCERIN SL 0.4 MG/TAB TAB SL PRN (15:15)
[2018-03-21] MEDS ORDERED: ONDANSETRON INJ 2 MG/ML 2 ML VIAL IV PRN (15:15)
[2018-03-21] MEDS ORDERED: MoRPHine SULFATE 2 MG/ML CARP IV PRN (15:15)
[2018-03-21] MEDS ORDERED: ALUMINUM/MAGNESIUM SUSP 30 ML UDC PO PRN (15:15)
[2018-03-21] MEDS ORDERED: POLYETHYLENE (MIRALAX) 17 GM PACK PO PRN (15:15)
[2018-03-21] MEDS ORDERED: SODIUM CHLORIDE 0.9% 1000ML 1,000 ML IV SCH (15:20)
[2018-03-21] MEDS ORDERED: ALBUTEROL HFA 8 GM INHALER INH PRN (15:30)
[2018-03-21] MEDS: VENLAFAXINE HCL XR 75 MG CAPXR PO SCH (15:40)
[2018-03-21] MEDS: HEPARIN SOD 5,000 UNIT/0.5 ML VIAL SQ SCH ×2 (16:00→21:50)
[2018-03-21] MEDS: METOPROLOL SUCC 50MG EXT REL TAB PO SCH (20:58)
[2018-03-21] MEDS: FLUTICASONE/SALMETEROL 250/50 (ADVAIR) 14 PUFF/1 INHALER INH SCH (21:01)
[2018-03-22] MEDS: HEPARIN SOD 5,000 UNIT/0.5 ML VIAL SQ SCH ×3 (06:19→21:29)
[2018-03-22] MEDS: LEVOTHYROXINE SODIUM 100 MCG TABLET PO SCH (06:19)
[2018-03-22 06:46] LABS: Basophils # (auto) 0.02 K/uL (0-0.2); Basophils % (auto) 0.3 %; Eosinophils # (auto) 0.78 K/uL (0-0.5); Eosinophils % (auto) 11.7 %; Hematocrit (blood only) 35.5 % (37-47); Hemoglobin 11.5 g/dL (12.0-16.0); Immature Granulocytes # (auto) 0.01 K/uL (0.00-0.02); Immature Granulocytes % (auto) 0.2 %; Lymphocytes # (auto) 1.05 K/uL (1.2-3.4); Lymphocytes % (auto) 15.8 %; Mean Corpuscular Hgb Conc 32.4 g/dL (32-36); Mean Corpuscular Volume 89.4 fL (80-100); Mean Platelet Volume 11.7 fL (7.4-10.4); Monocytes # (auto) 0.52 K/uL (0.11-0.59); Monocytes % (auto) 7.8 %; Neutrophils # (auto) 4.26 K/uL (1.4-6.5); Neutrophils % (auto) 64.2 %; Platelet Count 143 K/uL (130-400); RDW Standard Deviation 45.9 fL (36.4-46.3); Red Blood Count 3.97 M/uL (4.2-5.4); White Blood Count 6.64 K/uL (4.8-10.8)
[2018-03-22 07:09] LABS: BUN Creatinine Ratio 13.1 (10-20); Calcium 8.2 mg/dl (8.5-10.1); Creatinine Clr Calc Pharmacy 65.7 ml/min; Est GFR (African American) 80.7; Est GFR (Non-African American) 69.6; Potassium 3.8 mmol/L (3.5-5.1)
[2018-03-22] MEDS: ASPIRIN 81 MG ECTAB PO SCH (07:52)
[2018-03-22] MEDS: FLUTICASONE/SALMETEROL 250/50 (ADVAIR) 14 PUFF/1 INHALER INH SCH ×2 (07:52→21:28)
[2018-03-22] MEDS: PANTOprazole 40 MG TAB PO SCH (07:53)
[2018-03-22] MEDS: LISINOPRIL 5 MG TAB PO SCH (07:53)
[2018-03-22] MEDS: ATORVASTATIN 40 MG TAB PO SCH (07:53)
[2018-03-22] MEDS: METOPROLOL SUCC 50MG EXT REL TAB PO SCH ×2 (07:53→21:28)
[2018-03-22] MEDS: CLOPIDOGREL BISULFATE 75 MG TAB PO SCH (07:54)
[2018-03-22] MEDS ORDERED: BISACODYL 5 MG TABEC PO ONE ×2 (08:13→11:58)
[2018-03-22] MEDS: POLYETHYLENE (MIRALAX) 17 GM PACK PO SCH (10:03)
[2018-03-22] MEDS ORDERED: PERFLUTREN LIPID MICROSPHERE (DEFINITY) IV ONE (11:34)
[2018-03-22] MEDS: SUCRALFATE 1 GM/10 ML UDC PO SCH ×3 (12:00→21:28)
[2018-03-22] MEDS: cefTRIAXone SODIUM 1,000 MG/50 ML BAG IV SCH (13:43)
[2018-03-22] MEDS: VENLAFAXINE HCL XR 75 MG CAPXR PO SCH (15:58)
--- NOTE | 2018-03-22 21:24 | Hospitalist Progress Note ---
Date of Service March 22, 2018 Assessment & Plan (1) Nausea and vomiting: episodes could be due to GERD, gastritis, hiatal hernia, or noncardiac causes (ex - ischemia from CAD) current symptoms are similar to symptoms she had with her hiatal hernia before it was repaired but also remind her of when she has had CAD issues plan - obtain lexiscan nuclear stress test if negative then outpatient GI referral to DR. Hurd for consideration of EGD of note - she does not have a gall bladder (2) Abdominal pain: see discussion above in nausea/emesis UTI could be contributing but less likely (3) Hypothyroid: cont synthroid (4) Asthma: not in exacerbation at this time cont home meds (5) E. coli UTI: has had e. coli UTI 4 times since the summer of this year unclear why the same pathogen and so frequently bladder scan 40cc PVR thus she is emptying her bladder well no colo-vesicular fistula clues on CT I discussed with her outpatient urology referral post-discharge she alludes to having a cystocele and/or rectocele these could be contributing to risk cont rocephin today; transition to oral abx tomorrow (she does not want to go back on macrobid - she blames her n/v on this but I doubt the macrobid caused the n/v) (6) CAD (coronary artery disease): lexiscan nuclear stress test tomorrow NPO after MN trops neg x 3 (7) Hiatal hernia: s/p repair at [place] in 2016 despite the repair the imaging (CT) shows at least medium sized HH again outpatient GI referral w/ DR. Hurd (8) DVT prophylaxis: heparin TID (9) Constipation: dulcolax w/ miralax today needs bowel regimen for after d/c certainly could be contributing to her chronic GI symptoms as well grand-daughter updated at bedside today Subjective patient reports recurrent episodes of nausea with emesis over the last year happens at least monthly if not more in some ways the symptoms remind her of her heart pains as in the past she did not have chest pain but frequent GI symptoms (dyspepsia, burping, etc) she mentions frequent burping at home had hiatal hernia repair at [facility] in 2016 and symptoms now also remind her to a degree of her hiatal hernia as well she follows with Dr. Hurd she is frustrated by her recurrent UTIs she has had e. coli UTI 4 times since the summer overall feels much better relative to yesterday Constitutional: + fatigue and + weakness; no fever and no chills Respiratory: + dyspnea on exertion (chronic, no change from baseline); no cough and no dyspnea Cardiovascular: no chest pain Gastrointestinal: + abdominal pain, + nausea, + vomiting and + constipation; no diarrhea/loose stools Physical Exam 2 Vital Signs (Past 24 Hours): Last Vital Signs Temp 37.1 C 03/22/18 19:09 Pulse 80 03/22/18 19:09 Resp 20 03/22/18 19:09 BP 156/78 H 03/22/18 19:09 Pulse Ox 97 03/22/18 19:09 Constitutional: + obese; no acute distress and not ill appearing ENMT: external ear and nose normal, oropharynx normal Respiratory: normal respiratory effort, lungs clear to auscultation Cardiovascular: RRR, no murmur, no edema Heart Sounds: normal S1 and normal S2 Vessels: posterior tibial pulses present and dorsalis pedis pulses present; no JVD Extremities: no pedal edema Gastrointestinal (Abdomen): normal bowel sounds, soft, nontender, no hepatosplenomegaly Psychiatric: A+Ox3, euthymic affect Results & Data Laboratory Results Laboratory Results - last 24 hr 03/22/18 03/22/18 03/22/18 06:11 06:11 06:11 WBC 6.64 D RBC 3.97 L Hgb 11.5 L Hct 35.5 L MCV 89.4 MCH 29.0 MCHC 32.4 RDW Std Deviation 45.9 RDW Coeff of Juan Manuel 14.0 Plt Count 143 MPV 11.7 H Immature Gran % (Auto) 0.2 Neut % (Auto) 64.2 Lymph % (Auto) 15.8 Crook % (Auto) 7.8 Eos % (Auto) 11.7 Baso % (Auto) 0.3 Immature Gran # (Auto) 0.01 Neut # (Auto) 4.26 Lymph # (Auto) 1.05 L Crook # (Auto) 0.52 Eos # (Auto) 0.78 H Baso # (Auto) 0.02 Sodium 142 D Potassium 3.8 Chloride 109 H Carbon Dioxide 27 Anion Gap 6.0 BUN 11 Creatinine 0.80 Est Cr Clr Drug Dosing 65.7 Est GFR ( Amer) 80.7 Est GFR (Non-Af Amer) 69.6 BUN/Creatinine Ratio 13.1 Glucose 104 H Calcium 8.2 L Magnesium 2.0 Troponin I < 0.015 _ (1) Nausea and vomiting Vomiting Intractability: non-intractable Vomiting type: unspecified Qualified Code(s): R11.2 - Nausea with vomiting, unspecified (2) Abdominal pain Abdominal location: generalized Qualified Code(s): R10.84 - Generalized abdominal pain
[2018-03-23 05:52] LABS: Hematocrit (blood only) 36.8 % (37-47); Hemoglobin 11.6 g/dL (12.0-16.0); Mean Corpuscular Hgb Conc 31.5 g/dL (32-36); Mean Corpuscular Volume 89.8 fL (80-100); Mean Platelet Volume 11.7 fL (7.4-10.4); Platelet Count 133 K/uL (130-400); RDW Coefficient of Variation 13.8 % (11.5-14.5); RDW Standard Deviation 45.4 fL (36.4-46.3); White Blood Count 6.98 K/uL (4.8-10.8)
[2018-03-23] MEDS: HEPARIN SOD 5,000 UNIT/0.5 ML VIAL SQ SCH ×3 (06:32→14:20)
[2018-03-23] MEDS: LEVOTHYROXINE SODIUM 100 MCG TABLET PO SCH (06:32)
[2018-03-23 06:34] LABS: BUN Creatinine Ratio 13.2 (10-20); Calcium 8.2 mg/dl (8.5-10.1); Creatinine Clr Calc Pharmacy 64.9 ml/min; Est GFR (African American) 79.5; Est GFR (Non-African American) 68.6; Potassium 4.1 mmol/L (3.5-5.1)
[2018-03-23] MEDS: POLYETHYLENE (MIRALAX) 17 GM PACK PO SCH (07:51)
[2018-03-23] MEDS: SUCRALFATE 1 GM/10 ML UDC PO SCH ×2 (07:52→14:16)
[2018-03-23] MEDS: FLUTICASONE/SALMETEROL 250/50 (ADVAIR) 14 PUFF/1 INHALER INH SCH (07:52)
[2018-03-23] MEDS: LISINOPRIL 5 MG TAB PO SCH (07:52)
[2018-03-23] MEDS: ATORVASTATIN 40 MG TAB PO SCH (07:53)
[2018-03-23] MEDS: ASPIRIN 81 MG ECTAB PO SCH (07:53)
[2018-03-23] MEDS: PANTOprazole 40 MG TAB PO SCH (07:53)
[2018-03-23] MEDS: CLOPIDOGREL BISULFATE 75 MG TAB PO SCH (07:53)
[2018-03-23] MEDS: METOPROLOL SUCC 50MG EXT REL TAB PO SCH (07:53)
[2018-03-23] MEDS ORDERED: REGADENOSON 0.4 MG/5 ML SYR IV ONE (09:27)
--- NOTE | 2018-03-23 13:24 | Myocardial Perfusion Study ---
Date of Service March 23, 2018 Myocardial Perfusion Study [facility] Myocardial Perfusion Study Report Procedure: 1. Myocardial perfusion study performed in multiple views/images 2. Lexiscan pharmacologic stress ECG Indications: 1. Angina 2. CAD Ordering physician: Dr. Rivers Procedural details: For the stress portion of the study, Lexiscan 0.4 mg was intravenously administered followed by a saline flush. This was followed by 11.2 mCi of technetium 99m Cardiolite, injected at 9:30 a.m. on 03/23/2018. 30 minutes following the injection, imaging of the heart was performed in multiple projections. For the rest portion of the study, 30.9 mCi technetium 99m Cardiolite was injected intravenously at 12:10 p.m. on 03/23/2018. 1 hour following the injection, imaging of the heart was performed in the same projections. Lexiscan stress ECG: Resting ECG demonstrated: Sinus rhythm at 67 bpm. LBBB. Maximum heart rate: 86 bpm Maximal, age-predicted heart rate: 61 % Resting blood pressure: 145/74 mmHg Maximum blood pressure: 158/[address] changes: None Arrhythmia: None Symptoms: None reported Findings: Rotating raw imaging demonstrated no significant lung uptake. There is no significant motion artifact. Heart size appeared normal. Myocardial perfusion demonstrated small to moderate sized area of mildly reduced uptake involving the mid to apical anterior wall, which appeared reversible in rest imaging, suggesting ischemia. There were no significant fixed defects to suggest infarct. Ejection fraction: 64 % Wall motion: Normal No significant transient ischemic dilation. Impression: 1. Abnormal myocardial perfusion study suggesting mid to apical LAD ischemia. 2. Normal wall motion and left ventricular systolic function. EF 64%. 3. No chest pain reported. 4. Indeterminate Lexiscan ECG due to left bundle-branch block. 5. Dr. Aguilar, primary hospitalist, was made aware of findings.
[2018-03-23] MEDS: cefTRIAXone SODIUM 1,000 MG/50 ML BAG IV SCH ×2 (14:15→14:21)
--- NOTE | 2018-03-27 00:32 | Discharge Summary ---
Date of Service March 23, 2018 Admission HPI Per Admitting Provider 82 y/o F Hx CAD - CA 2016, HTN, HLD, hypothyroid, asthma, hiatal hernia. The pt is currently being treated for a UTI. She presents with a primary complaint of abdominal pain and distention. She had also complained of a headache although this resolved with NSAIDS. A relative at bedside reports that she has had difficulty tolerating any food over the past few days due to bloating and pain after she eats. She describes nausea and had one episode of vomiting - denies diarrhea/constipation of fevers. Initial labs are notable for leukocytosis and a marginally (+) UA which may represent a partially treated UTI. On review of previous records, she presented in a similar manner in 2016 when she was diagnosed with an inferior CA. Her abdominal pain was thought to be an anginal equivalent. PMH: 1) CAD - inferior CA 2016 - JAYLEEN to RCA 2) HTN 3) Hiatal hernia 4) HLD 5) Obesity 6) Hypothyroid 7) Asthma 8) LBBB 9) Cervical spinal stenosis 10) Social: She does not drink or smoke Family: Reports her brother had CAD Admission Exam Per Admitting Provider General: AAO x 3, no distress ENT: No erythema or exudates, no thrush Eyes: PERNELL, EOMI Head and neck: Normocephalic, atruamatic, No JVD, neck is supple. Chest/heart: Nontender, S1,2, RRR, no murmurs, no gallops Lungs: CTAB, no wheezing or crackles Abdomen: Abdominal distention and mild tenderness to palpation - no guarding Neuro: AAO x 3, speech is clear, no unilateral weakness or loss of sensation, coordination intact Musculoskeletal: No joint inflammation, muscle tenderness, FROM Skin: No acute rashes or ulcers Extremities: No clubbing, cyanosis - minimal BL edema Principal Diagnosis Nausea and vomiting, abnormal nuclear stress test Discharge Exam Constitutional WD/WN, vitals as above Eyes PERRL, conjunctivae normal, anicteric sclerae ENMT external ear and nose normal, oropharynx normal Neck trachea midline, no thyromegaly Respiratory normal respiratory effort, lungs clear to auscultation Cardiovascular RRR, no murmur, no edema Gastrointestinal (Abdomen) normal bowel sounds, soft, nontender, no hepatosplenomegaly Musculoskeletal no cyanosis or clubbing, extremities motor strength 5/5 Skin no rashes, warm and dry Neurologic patellar DTR's 2+ bilat, sensation intact and PERRL, EOMI, accommodation nl, no face palsy, no dysarthria Psychiatric A+Ox3, euthymic affect Lymphatic no cervical or axillary lymphadenopathy Discharge Data Allergies Allergy/AdvReac Type Severity Reaction Status Date / Time amoxicillin Allergy Intermediate RASH-ITCHIN Verified 03/21/18 11:23 G Penicillins Allergy Intermediate RASH-ITCHIN Verified 03/21/18 11:23 G Consultations 03/21/18 13:42 ED Decision to Admit Stat Ordered Studies 03/21/18 10:59 CT head/brain wo con Stat 03/21/18 12:53 CT abd pelvis IV con only Stat Hospital Course (1) Abnormal stress test: nuclear stress test performed after patient presented with nausea and vomiting and epigastric pain she reported that her prior CA in 2016 presented in a similar fashion nuclear stress test was slightly abnormal in region of LAD distribution patient never had any chest pain or pressure during stay troponin was negative discussed with patient as well as with cardiology given the fact that the test was mildly abnormal and she never had symptoms, could follow up as outpatient gave patient option to stay in hospital and get heart catheterization on 03/25 or go home and follow up patient was feeling much better, she preferred to be discharged and follow up with cardiology in a week to set up heart catheterization it was noted that on prior cath she had a 50% lesion in LAD will continue statin and anti-platelet therapy (2) Nausea and vomiting: episodes could be due to GERD, gastritis, hiatal hernia, or noncardiac causes (ex - ischemia from CAD) resolved completely at the time of discharge patient eating well, ate quickly without difficulty CT shows recurrent hiatal hernia which she had repaired at [place] recommend follow up with Dr. Hurd for possible EGD (3) CAD (coronary artery disease): lexiscan nuclear stress test slightly abnormal, see above trops neg x 3 continue antiplatelet therapy (4) Abdominal pain: see discussion above in nausea/emesis resolved (5) Hypothyroid: cont synthroid (6) Asthma: not in exacerbation at this time cont home meds (7) E. coli UTI: has had e. coli UTI 4 times since the summer of this year unclear why the same pathogen and so frequently bladder scan 40cc PVR thus she is emptying her bladder well no colo-vesicular fistula clues on CT I discussed with her outpatient urology referral post-discharge she alludes to having a cystocele and/or rectocele these could be contributing to risk treated with Rocephin, follow up with PCP (8) Hiatal hernia: s/p repair at [place] in 2016 despite the repair the imaging (CT) shows at least medium sized HH again outpatient GI referral w/ DR. Hurd (9) DVT prophylaxis: heparin TID (10) Constipation: dulcolax w/ miralax moved bowels prior to discharge Total Time Total Time Spent Total Time Spent (In Minutes): 50 minutes Total Time Includes: Examination of the Patient, Discharge Planning, Medication Reconciliation, Communication With Other Providers (cardiology) and Other ( discussion with family members at the bedside, visited with patient several times) Discharge Plan Discharge Items Patient Disposition: Home - Self-Care Reason For Visit: ABD PAIN Discharge Diagnosis: Abnormal Lexiscan stress test, hiatal hernia, nausea/ vomiting Condition: Good Discharge Goals: Decrease discomfort and Diagnostic testing Specific Goals: follow up with cardiology for catheterization, follow up with Dr. Hurd Activity: Per 'Additional Instructions' section Lifting: None Bathing: No limitations Exercise/Sports: Wait until after follow-up appointment Non-emergency contact: Primary Care Provider, Email Production Specialist and City Weighmaster Call non-emergency contact if: you have any medication questions, your symptoms worsen and you have a fever Follow-up/Referrals: Huber Gaviria MD [Primary Care Provider] - 03/27/18 10:15 am (Please, follow up at Dr. Gaviria's office with Chely Win PA-C FridayMarch 27 at 10:15 am. *If you need to change this appointment, call their office at [phone].) Diet: Heart Healthy Add Provider Instructions: Medications: no changes, continue to taking your aspirin, Plavix, metoprolol, Lipitor for heart protection Nausea/vomiting: resolved, could be due to hiatal hernia need to follow up with Dr. Hurd to discuss possible repeat EGD Abnormal Lexiscan stress test very mild abnormality in the LAD territory EKG showed left bundle branch block, same as prior EKG troponin (heart enzyme) negative for three sets discussed with cardiology, they recommend follow up in office and discuss heart cath as outpatient FOLLOW UP - Dr. Gaviria on 03/27, discuss referral to cardiology and gastroenterology to have cath and EGD as outpatient Prescriptions: Continue atorvastatin 40 mg tablet 40 mg PO QAM RF: 0 fluticasone-salmeterol 250-50 mcg/dose blister with device 1 puff Inhalation BID RF: 0 venlafaxine 75 mg capsule,extended release 24hr 75 mg PO 1630 RF: 0 metoprolol succinate 50 mg tablet extended release 24 hr 50 mg PO BID RF: 0 clopidogrel 75 mg tablet 75 mg PO QAM RF: 0 aspirin 81 mg Tablet,Delayed Release (Dr/Ec) 81 mg PO QAM RF: 0 levothyroxine 100 mcg tablet 100 mcg PO QAM RF: 0 omeprazole 20 mg capsule,delayed release(DR/EC) 20 mg PO QAM RF: 0 lisinopril 5 mg Tablet 5 mg PO QAM RF: 0 albuterol sulfate 90 mcg/actuation HFA aerosol inhaler 2 puff Inhalation DAILY PRN (Reason: Shortness Of Breath Or Wheezing) RF: 0 omega 5-rgc-dgm-fish oil [Fish Oil] 1,000 mg (120 mg-180 mg) Capsule 1 cap PO QAM RF: 0 Stand-Alone Forms: [facility] Discharge Orders: Discharge Order (Routine); Ordered 03/23/18 Ordered By: Walter Aguilar Admission Data Admit Date/Time: 03/21/18 14:29 Attending Provider: Walter Aguilar Admit Provider: Parmjit Ramirez Primary Care Provider: Huber Gaviria Other Providers: Parmjit Ramirez Service: Telemetry Other Interventions: Discharge Summary Assessment (RN) Last Done: 03/23/18 14:36 DC Date/Time DO NOT enter until pt leaves facility: 03/23/18 15:09
== END 2018-03-23 15:09 | disposition home or self-care (01) ==
LOC: ED 10:34 → 2S 10:34 → SUATTDRO 14:29 → 2S 14:47

== ENCOUNTER 2018-04-01 10:23 | Observation (INO) ==
[2018-04-01] MEDS ORDERED: LIDOCAINE HCL 1% 20 ML VIAL ONE ×2 (12:36→16:50)
--- NOTE | 2018-04-01 12:39 | History & Physical Bridge Note ---
Date of Service April 01, 2018 History & Physical Bridge Note I have examined the patient, reviewed the History & Physical and in the interval since the performance of the History & Physical I have noted the following changes of clinical significance: no changes noted
--- NOTE | 2018-04-01 12:39 | Pre Anesthesia Assessment ---
Date of Service April 01, 2018 Pre Sedation Assessment Vital Signs Temp Pulse Resp Pulse Ox 04/01/18 10:47 36.4 C L 78 16 99 Cardiovascular + regular rate Respiratory + respiratory effort normal Pre-Sedation Airway Assessment Smoking Status: Never smoker Hx Sleep Apnea: No Hx Difficult Intubation: No Short, Thick Neck: No Thyromental Distance: > or= 3.5 Finger Breadths Oral Cavity: + WNL Mallampati Class: III ASA: ASA3 NPO Status Date of Last Intake of Fluids: 03/31/18 Time of Last Intake of Fluids: 19:00 Date of Last Intake of Solid Food: 03/31/18 Time of Last Intake of Solid Foods: 19:00 Procedure Planning Contraindications for Sedation: none Current Medications Reviewed: Yes Notes The planned sedation has been discussed with the patient. Informed Consent was obtained. I have identified the patient, determined the appropriateness of sedation and have assessed the patient immediately prior to the procedure. All medicine(s) and interventions are by my order.
[2018-04-01] MEDS ORDERED: HEPARIN (PORCINE) 1000 UNIT/ML 10 ML (CATH LAB USE ONLY) ONE ×2 (12:40→16:40)
[2018-04-01] MEDS ORDERED: NiCARDipine HCL INJ 2.5 MG/ML 10 ML AMP ONE ×2 (12:40→16:40)
[2018-04-01] MEDS ORDERED: MIDAZOLAM HCL 1 MG/ML 2ML VIAL ONE ×2 (12:41→16:40)
[2018-04-01] MEDS ORDERED: NITROGLYCERIN/D5W 100MCG/ML 20ML SYR ONE ×2 (12:41→16:41)
[2018-04-01] MEDS ORDERED: fentaNYL citrate 100 MCG/2 ML VIAL ONE ×2 (12:42→16:40)
--- NOTE | 2018-04-01 13:41 | Cardiac Catheterization ---
Cardiac Cath Procedure: Brief Procedure Date April 01, 2018 Pre-Procedure Diagnosis Pre-Procedure Diagnosis: Positive Stress Test AUC Score AUC Score: 8 Post-Procedure Diagnosis Post-Procedure Diagnosis: Severe CAD Procedure(s) Performed Procedure(s) Performed: Coronary Angiography and Left Heart Cath Transportation Broker Lj Romero MD Marine Resource Economist(s) none Estimated Blood Loss Estimated Blood Loss: 5ml Medication(s) Medication(s): Fentanyl, Heparin, Nicardipine, Nitroglycerin and Versed Preliminary Findings severe ostial LAD stenosis. Patent RCA stent Recommendations Recommendations: PCI without planned CABG Specimens Specimens: None Procedural Complication(s) None Disposition Recovery Room\PACU
[2018-04-01] MEDS ORDERED: ADENOSINE IV SOLN 3 MG/ML 20 ML VIAL IV ONE (17:32)
[2018-04-01] MEDS ORDERED: ALBUTEROL HFA 8 GM INHALER INH PRN (18:11)
--- NOTE | 2018-04-01 18:18 | Pre Anesthesia Assessment ---
Date of Service April 01, 2018 Pre Sedation Assessment Vital Signs Temp Pulse Resp BP Pulse Ox 04/01/18 16:30 78 16 146/69 H 95 04/01/18 16:15 76 16 144/73 H 95 04/01/18 16:00 76 16 148/72 H 98 04/01/18 15:45 75 16 136/74 94 04/01/18 15:30 75 16 143/74 H 95 04/01/18 15:15 79 16 137/66 95 04/01/18 15:00 77 16 146/67 H 96 04/01/18 14:45 76 16 141/70 H 96 04/01/18 14:30 75 16 147/64 H 94 04/01/18 14:15 69 16 141/65 H 96 04/01/18 14:00 76 16 145/75 H 97 04/01/18 13:45 77 16 148/78 H 99 04/01/18 13:28 75 16 151/74 H 99 04/01/18 10:47 36.4 C L 78 16 99 Cardiovascular RRR, no murmur, no edema Respiratory normal respiratory effort, lungs clear to auscultation Pre-Sedation Airway Assessment Smoking Status: Never smoker Hx Sleep Apnea: No Hx Difficult Intubation: No Short, Thick Neck: No Thyromental Distance: > or= 3.5 Finger Breadths Oral Cavity: + WNL Mallampati Class: III ASA: ASA3 NPO Status Date of Last Intake of Fluids: 03/31/18 Time of Last Intake of Fluids: 19:00 Date of Last Intake of Solid Food: 03/31/18 Time of Last Intake of Solid Foods: 19:00 Procedure Planning Contraindications for Sedation: none Current Medications Reviewed: Yes Notes The planned sedation has been discussed with the patient. Informed Consent was obtained. I have identified the patient, determined the appropriateness of sedation and have assessed the patient immediately prior to the procedure. All medicine(s) and interventions are by my order.
--- NOTE | 2018-04-01 18:19 | Post Anesthesia Assessment ---
Date of Service April 01, 2018 Post Sedation Assessment Vital Signs Temp Pulse Resp BP Pulse Ox 04/01/18 16:30 78 16 146/69 H 95 04/01/18 16:15 76 16 144/73 H 95 04/01/18 16:00 76 16 148/72 H 98 04/01/18 15:45 75 16 136/74 94 04/01/18 15:30 75 16 143/74 H 95 04/01/18 15:15 79 16 137/66 95 04/01/18 15:00 77 16 146/67 H 96 04/01/18 14:45 76 16 141/70 H 96 04/01/18 14:30 75 16 147/64 H 94 04/01/18 14:15 69 16 141/65 H 96 04/01/18 14:00 76 16 145/75 H 97 04/01/18 13:45 77 16 148/78 H 99 04/01/18 13:28 75 16 151/74 H 99 04/01/18 10:47 36.4 C L 78 16 99 Recovery Score Activity: Moves 4 extremities Respiration: Deep Breath/Cough Circulation: +/-20% PreAnes Value Consciousness: Fully Awake Oxygen Saturation: > 92% On Room Air Post Anesthesia Score: 10 Discharge Sedation Level of Care: Fast Track Phase II Post Sedation Plan On clinical assessment, the patient appears to have tolerated the sedation without complications. Patient is recovering as anticipated. Patient will continue to be monitored by nursing and may be discharged when sedation discharge criteria are met per below protocol. Upon Completions of procedure and additional 15 minutes continue every 5 minute vital signs and the P.A.R. score; then discharge to a Phase I or Fast Track to Phase II per the following guidelines: * Discharge Patient to appropriate Phase II area if PAR is 8 or greater or return to pre- procedure baseline. The post - procedure orders will be as directed. * If PAR score is less than 8 or not return to pre-procedure baseline then patient will follow Phase I monitoring till PAR is reached for Phase II. The Phase I may be done in procedure room or may call to secure a Phase I area. * If naloxone or flumazenil are used for reversal, hold in Phase I for continued monitoring from when last reversal dose was given for a minimum of 60 minutes or longer pending the nurse and/or physician discretion of patient condition before discharge to Phase II. Please call the Sedation Physician to re-evaluate and complete post-note for discharge to Phase II area. Do NOT discharge from procedure sedation or Phase 1 until post- sedation evaluation note is complete by procedure /sedation MD Sedation Discharge Instructions to be given to the patient at discharge to home.
--- NOTE | 2018-04-01 18:24 | Cardiac Catheterization ---
Cardiac Cath Procedure Full Procedure Date April 01, 2018 Pre-Procedure Diagnosis Pre-Procedure Diagnosis: Positive Stress Test AUC Score AUC Score: 8 Post-Procedure Diagnosis Post-Procedure Diagnosis: Severe CAD Procedure(s) Performed Procedure(s) Performed: Coronary Angiography, IVUS and Fractional Flow [place] Chief Sales Officer Lj Lopez MD Purchasing Associate(s) Nazario Estimated Blood Loss Estimated Blood Loss: 10 Medication(s) Medication(s): Fentanyl, Heparin, Lidocaine 1% and Versed Summary of Findings For full details of patient's coronary angiography please cath report dictated by Dr. Romero. Briefly, patient found to have moderate to severe ostial LAD vessel disease. Decision to further assess with IVUS. --Left main cannulated with JL 3.5 guide Whisper wire placed into distal LAD IVUS used to assess ostial LADmild diffuse calcified proximal to mid disease. 50% ostial stenosis with eccentric calcified plaque (MLA 5.0 mm2). -- Due to moderate disease on IVUS decision to proceed with FFR -- Using a doc wire and 1.5 OTW balloon, whisper wire exchanged for straight FFR wire placed into distal LAD. -- iFR 0.95 -- FFR 0.88 -- Post procedure angiography showed no apparent coronary complications. SUMMARY: 1. Moderate non-obstructive eccentric ostial LAD disease (50% by IVUS, FFR 0.88) . Hemodynamics Rest Ao:: 162/76/112 Final Ao: 158/62/98 LV: 154/15 Recommendations Recommendations: PCI without planned CABG Specimens Specimens: None Radiation Exposure (mGy) 1789 Contrast (mls) 55 Fluids (cc crystalloids) Fluids (cc crystalloids): 100 Drains Drains: none Anesthesia moderate Procedural Complication(s) None Disposition Recovery Room\PACU ACC Data: Tongue Carrier Cardiac Status Clinical evaluation leading to the procedure CAD Presenation: Positive Stress Test Anginal Classification: CCS III Heart Failure: No Cardiogenic Shock within 24 Hours: No Cardiac Arrest within 24 Hours: No Imaging Studies Past 6 Months: Yes Stress Studies Past 6 Months: Yes Stress Echocardiogram: Yes - Positive Diagnostic Physicians Name: Lj Lopez MD Status: Elective Closure Device Percutaneous Entry Location: Radial Closure Device: Radial Band Recommendations: PCI without planned CABG Intraprocedure Events Significant Disection: No Perforation: No
[2018-04-01] MEDS ORDERED: SODIUM CHLORIDE 0.9% 1000ML 1,000 ML IV SCH (18:30)
[2018-04-01] MEDS ORDERED: Nursing to Pharmacy Communication ONE (19:19)
[2018-04-01] MEDS: ACETAMINOPHEN 325 MG TAB PO PRN ×2 (19:25→23:58)
[2018-04-01] MEDS ORDERED: VENLAFAXINE HCL XR 75 MG CAPXR PO ONE (19:45)
[2018-04-01] MEDS: METOPROLOL SUCC 50MG EXT REL TAB PO SCH (20:30)
[2018-04-01] MEDS: FLUTICASONE/SALMETEROL 250/50 (ADVAIR) 14 PUFF/1 INHALER INH SCH (20:30)
[2018-04-02] MEDS ORDERED: LEVOTHYROXINE SODIUM 100 MCG TABLET PO SCH (06:30)
[2018-04-02] MEDS: FLUTICASONE/SALMETEROL 250/50 (ADVAIR) 14 PUFF/1 INHALER INH SCH (08:42)
[2018-04-02] MEDS: METOPROLOL SUCC 50MG EXT REL TAB PO SCH (08:44)
[2018-04-02] MEDS ORDERED: LISINOPRIL 5 MG TAB PO SCH (09:00)
[2018-04-02] MEDS ORDERED: ATORVASTATIN 40 MG TAB PO SCH (09:00)
[2018-04-02] MEDS ORDERED: OMEGA-3 (PURIFIED FISH OIL) 1 GM CAP PO SCH (09:00)
[2018-04-02] MEDS ORDERED: ASPIRIN 81 MG ECTAB PO SCH (09:00)
[2018-04-02] MEDS ORDERED: PANTOprazole 40 MG TAB PO SCH (09:00)
[2018-04-02] MEDS ORDERED: CLOPIDOGREL BISULFATE 75 MG TAB PO SCH (09:00)
[2018-04-02] MEDS ORDERED: VENLAFAXINE HCL XR 75 MG CAPXR PO SCH (16:30)
--- NOTE | 2018-04-09 14:33 | Cardiac Catheterization ---
Date of Service April 01, 2018 Cardiac Cath Report Cardiac Cath Report Procedure performed: Coronary angiography, left heart catheterization Staff envelope machine adjuster: Nehemiah Romero MD Indication: The patient is an 82-year-old woman with a history of percutaneous intervention to the right coronary artery and dyspnea on exertion. She recently underwent outpatient perfusion imaging was suggested a reversible defect in the anterior wall. As such she was referred for coronary angiography. Procedure in detail: The patient was informed of the risks benefits and alternatives to the intended procedure, he understood such and wished to proceed. She was taken to the cardiac catheterization suite in a fasting state. Conscious sedation was administered per protocol and the patient was monitored electrocardiographically throughout today's procedure. The right wrist area was prepped and draped in usual sterile fashion. This area was anesthetized using subcutaneous administration of a lidocaine solution. The right radial artery was then accessed using Seldinger technique, and a arterial sheath was placed at this site over a guidewire. The sheath was used to facilitate passage of the cardiac catheter for coronary angiography and left heart catheterization. Coronary angiogram was then obtained in multiple orthogonal views prior to removal of the catheter. At the conclusion of the procedure the sheath was removed and hemostasis was achieved at the access site using manual pressure. The patient tolerated procedure well, there were no immediate complications. Equipment used: 5 [place] 4 Findings: Opening aortic pressure: 136/69 mmHg Closing aortic pressure: 157/72 mmHg Left ventricular pressure: 153 over 4 mmHg Left ventricular end-diastolic pressure: 12 mmHg Coronary angiography: Left main: Left main coronary artery was normal in size and caliber and essentially divided into 4 separate arteries at its distal portion. No obstructive coronary disease in this distribution Left anterior descending: Left anterior descending was a medium-sized transapical vessel. It appeared to have a discrete 90% stenosis at its ostium. Ramus intermedius: The patient produced a very high first diagonal versus ramus intermedius branch with some luminal irregularities at its origin. Left circumflex: Left circumflex artery was a nondominant vessel. It produced a very large first OM branch and a medium-sized ongoing AV groove vessel prior to development of a second OM branch. There are luminal irregularities but no discrete stenosis in this distribution Right coronary artery: The right coronary artery had a 20% stenosis in its midportion. It was a dominant vessel. No obstructive coronary disease in this distribution. Impression: Obstructive coronary disease involving the proximal LAD Plan: Patient will be referred for percutaneous intervention involving the left anterior descending artery
--- NOTE | 2018-04-22 22:48 | Discharge Summary ---
Date of Service April 02, 2018 Admission HPI Per Admitting Provider 82-year-old female history of coronary artery disease post GA in 2016, hypertension, dyslipidemia, hypothyroidism, asthma, hiatal hernia. Seen recently in the setting of abdominal pain/bloating reminiscent of prior symptoms she had with her GA and thought to be her anginal equivalent. Scheduled to undergo diagnostic cardiac catheterization with her primary legal transcriber Dr. Romero. Discharge Data Procedures Performed Operation Date: 04/01/18 11:30 Actual Procedures p Cath, Left with Cors and Vent - Lj Romero MD s Cineradiography w/Routine Exam - Lj Romero MD Operation Date: 04/01/18 16:00 Actual Procedures p Cath, Left with Cors and Vent - Lj Lopez MD s Cineradiography w/Routine Exam - Lj Lopez MD s IVUS Coronary Single Vessel - Lj Lopez MD s Fraction Flow [place] SGL Ves - Lj Lopez MD Hospital Course (1) Abdominal pain: (2) CAD (coronary artery disease): Cardiac catheterization performed via right radial artery. Patient found to have moderate to severe ostial LAD vessel disease. Decision to further assess with IVUS. Post diagnostic angiography further assessment had to be delayed due to emergency requiring cardiac lab pack chemist. Right radial artery sheath was left in place until later in the day when procedure could be performed. Sheath was exchanged. IVUS of LAD or consistent with mild to moderate disease (MLA 5.0 mm). Decision to proceed with FFR. IFR 0.95, FFR 0.88 consistent with nonobstructive disease. In the setting of negative FFR decision made to forego PCI. Post procedure was noted to have mild ecchymosis/questionable hematoma at site of right radial artery access. Decision was made for extended observation of access site post procedure. She was admitted to telemetry service for observation overnight. She had no recurrent abdominal pain/chest pain. Right radial artery pulse intact without significant hematoma in a.m. Telemetry unremarkable. Discharge to home on prior home medications. Continue to follow-up with Dr. Romero Discharge Instructions Home Medications albuterol sulfate 2 puff INHALATION DAILY PRN 03/21/18 [History Confirmed ] aspirin 81 mg PO QAM 03/21/18 [History Confirmed 03/30/18] atorvastatin 40 mg PO QAM 03/21/18 [History Confirmed 03/30/18] fluticasone-salmeterol 1 puff INHALATION BID 03/21/18 [History Confirmed ] levothyroxine 100 mcg PO QAM 03/21/18 [History Confirmed 03/30/18] metoprolol succinate 50 mg PO BID 03/21/18 [History Confirmed 03/30/18] omeprazole 20 mg PO QAM 03/21/18 [History Confirmed 03/30/18] venlafaxine 75 mg PO 1630 03/21/18 [History Confirmed 03/30/18]
== END 2018-04-02 11:47 | disposition home or self-care (01) ==
LOC: CC 10:23 → 2S 10:23

== ENCOUNTER 2025-01-31 11:19 | Observation (INO) ==
[2025-01-31] MEDS: ACETAMINOPHEN 1,000 MG/100 ML VIAL IV STA (11:34)
[2025-01-31] MEDS: ONDANSETRON INJ 2 MG/ML 2 ML VIAL IV STA (12:15)
[2025-01-31] MEDS: MoRPHine SULFATE 2 MG/ML CARP IV STA ×2 (12:16→13:36)
--- NOTE | 2025-01-31 12:18 | XRay Report ---
XR knee RT 3V CLINICAL HISTORY: Knee trauma, no prior imaging COMPARISON: None FINDINGS: There is moderate osteoarthritis. No fracture or dislocation seen. IMPRESSION: No fracture seen. ACT 112: Negative or not required by law. Electronically signed by: Evan Balderas M.D. 01/31/2025 12:17 PM
--- NOTE | 2025-01-31 12:19 | XRay Report ---
XR shoulder RT min 2V routine CLINICAL HISTORY: Shoulder trauma, no prior imaging COMPARISON: None FINDINGS: There is an acute minimally displaced fracture proximal right humerus involving the surgic al neck and undermining the greater tuberosity. No dislocation seen at the right shoulder. IMPRESSION: Acute fracture proximal right humerus. ACT 112: Negative or not required by law. Electronically signed by: Evan Balderas M.D. 01/31/2025 12:17 PM
--- NOTE | 2025-01-31 14:20 | Emergency Department Note ---
Impression & Plan Fall, Closed right humeral fracture, Acute pain of right knee, Facial abrasion, Closed head injury ED Provider Note CHIEF COMPLAINT: Fall, right shoulder, right knee pain HISTORY OF PRESENT ILLNESS: This 89-year-old female patient presents to the emergency department via ambulance after a fall. The patient states she had been at the gas station to get gas. She walked inside the pain came back out to the gas pump when her foot got caught on the tread at the pump and caused her to fall. The patient states she landed on her right shoulder and knee and struck her face on the concrete. She denies any loss of consciousness. She states she has been feeling nauseated, but has not had any vomiting. No visual disturbances. No abdominal pain or chest pain. No shortness of breath. The patient denies any numbness or tingling. She is having significant pain at the achiness in her right shoulder. Patient was ambulatory after the event without difficulty. History provided by: Patient REVIEW OF SYSTEMS: A 10 system review of systems was performed with positives and pertinent negatives listed in the history of present illness. All other systems were reviewed and are negative. ALLERGIES: Amoxicillin, penicillin PHYSICAL EXAM: Primary Survey Airway: Intact Breathing: Normal, breath sounds equal bilaterally Circulation: Skin warm, distal pulses 2+, capillary refill less than 2 seconds Disability Pupils: Equal and reactive to light, 7mm, brisk GCS: 15, E = 4 V=5 M= 6 Motor Function: Moves all extremities. Sensory: No deficits Secondary Survey GEN: Well developed and well-nourished HEAD: Normal cephalic atraumatic EYES: Pupils round reactive to light, conjunctiva clear, extraocular movements intact, no raccoons eyes ENT: No fluid in external acoustic canals, no hemotympanum, no recinos's sign, nares patent, oropharynx clear NECK: No JVD, midline trachea, no cervical spine tenderness, C-collar in place HEART: Regular rate and rhythm LUNGS: Clear to auscultation bilaterally. CHEST: Chest wall non-tender, no bruising/deformity ABD: No Nixon-Brasher's or Morales's sign, soft, non-tender, no rebound or guarding, PELVIS: Stable to rock BACK: No step offs or deformities, T-L spine non tender : No perineal hematoma, no blood at the meatus EXT: 2+ global pulses, moving all extremities well, +5/5 muscle strength globally SKIN: Superficial abrasions on the nose and upper lip. 2.5cm laceration on the superior anterior aspect of the left knee. The edges do gape apart, but it appears that the superficial layer has been avulsed away. The edges are unable to be pulled together. No active bleeding or discharge. NEURO: CNII-XII grossly intact, no sensory deficits An order was placed for continuous shelter monitor. The monitor showed a normal sinus rhythm at a ventricular rate of 74 bpm, per my interpretation. Imaging as interpreted by myself and the radiologist revealed proximal left humerus fracture, with radiologist interpretation as above. I agree with the radiologist's findings as based upon my independent interpretation. EMERGENCY DEPARTMENT COURSE: The patient was evaluated as above. The patient presents to the emergency department after a fall. The patient landed on her right shoulder and right knee. She does have a superficial abrasion on the right knee as well as on the upper lip. These do not appear amenable to closure. IV access obtained, labs were drawn. The patient was medicated with IV acetaminophen. X-rays were completed and reviewed by myself and radiologist as noted. X-ray of the right knee was negative for acute fracture. X-ray of the right shoulder was concerning for a proximal humerus fracture. CT imaging of the head, face, and cervical spine were completed and reviewed by myself radiologist as noted. The scans were negative. Patient was medicated with IV morphine and Zofran. She did not experience significant improvement with the morphine and continued to complain of pain. She was medicated with a second dose of IV morphine. The patient was reassessed. Her pain has improved, but has not totally resolved. I did discuss the case with orthopedics. They did evaluate the patient. The patient's fracture is nonsurgical. Unfortunately, the patient lives alone. I do feel that she will have difficulty getting around. Her family member had spoken with her regarding desire to take her with her to her home in [place], but the patient is hesitant to be in a car for that long. I do feel that admission for PT/OT evaluation and consideration for rehab placement is reasonable. The patient was agreeable and would prefer to go this route. I discussed the case [facility] Please see his dictation regarding ongoing management of this patient. This visit is during a period of high volume and high acuity in the emergency department. I attest that I have personally reviewed the patient medication list. I attest that I have reviewed the patient's blood pressure and it was found to be elevated. Further management by hospitalist. GCS: 15 In the evaluation and treatment of this patient the following differential diagnoses were entertained: Fracture, dislocation, contusion, intra-abdominal, pneumothorax, intrathoracic, intracranial, neurologic, compartment syndrome, rhabdomyolysis, as well as other pathologies. The chart was completed utilizing [employer] Speech voice recognition software. Grammatical errors, random word insertions, pronoun errors, and incomplete sentences are an occasional consequence of this system due to software limitations, ambient noise, and hardware issues. Any formal questions or concerns about the content, text, or information contained within the body of this dictation should be directly addressed to the provider for clarification. Past Med/Surg History Problem List (Updated 01/31/25 @ 14:56 by Susanne Shah PA-C) Closed head injury (Acute) Facial abrasion (Acute) Acute pain of right knee (Acute) Closed right humeral fracture (Acute) Fall (Acute) Closed fracture of right proximal humerus Mitral regurgitation Pain in foot Anemia Hyperlipidemia Compression fracture Pyelonephritis (Acute) CAD (coronary artery disease) Hiatal hernia Vitamin D deficiency (Acute) S/P right coronary artery (RCA) stent placement (Acute) 5-6 YEARS AGO>FOLLOWS WITH DR. SARABIA Osteoarthritis (Acute) Mild persistent asthma (Acute) Left bundle branch block (Acute) Hypertension (Acute) Hearing loss (Acute) Gastroesophageal reflux disease (Acute) Dysphagia, pharyngeal phase (Acute) Arthralgia (Acute) Adjustment disorder with anxiety (Acute) Chronic pelvic pain in female Interstitial cystitis Hypothyroidism Obesity Type 2 diabetes mellitus, with long-term current use of insulin Depression Nausea & vomiting Lower abdominal pain Gastroparesis GERD (gastroesophageal reflux disease) Current use of proton pump inhibitor Medical History Fall Diarrhea Encounter for pre-operative examination Encounter for pre-operative examination Anxiety Hypothyroidism New onset type 1 diabetes mellitus, uncontrolled Asthma HAS NOT USED RESCUE INHALER RECENTLY Surgical History H/O total hysterectomy History of colonoscopy History of esophagogastroduodenoscopy (EGD) History of cholecystectomy History of repair of hiatal hernia History of tooth extraction History of cataract surgery S/P hernia repair Family History Mother Coronary heart disease Stroke Father Coronary heart disease Sister Diabetes Breast cancer Hypertension Brother Diabetes Other Cancer Heart disease Lung disease No family history of adverse response to anesthesia Denies family history of Ovarian cancer Prostate cancer Myocardial infarction Colorectal cancer Social History Smoking Status: Never smoker Second Hand Exposure: Yes ( A CHILD); Do You Dip or Chew Tobacco: No; Hx Alcohol Use: No Hx Substance Use: No Preferred Language: Armenian Communication Ability: Effective Visual Impairment: No Limitations Contracts Manager Required: No Beliefs That Will Affect Care: None marital status: / Current Living Situation: Alone current occupational status: retired Feels Safe at Home: Yes Childhood Exposure to Second-Hand Smoke: Yes Dental Care, Regularly: Yes Physical Activity Frequency: 1-2 Times per Week Seatbelt Use: always Sunscreen Use: No Assistive Devices: None Allergies Allergies Allergy/AdvReac Type Severity Reaction Status Date / Time amoxicillin Allergy Intermediate RASH-ITCHIN Verified 01/07/25 11:19 G Penicillins Allergy Intermediate RASH-ITCHIN Verified 01/07/25 11:19 G Home Meds Home Medications Medication Instructions Recorded Confirmed omega-3 acid ethyl esters 1 gram 1 cap PO DAILY 11/12/18 01/07/25 capsule fluticasone propionate 50 1 - 2 sprays intranasal DAILY PRN 08/24/19 01/07/25 mcg/actuation nasal Congestion #1 g spray,suspension vitamins A,C,[id number] 4,296 1 cap PO AMPM 12/25/21 01/07/25 mcg-226 mg-90 mg capsule (PreserVision AREDS) Previous Rx's Medication Instructions Recorded ondansetron HCl 4 mg tablet 4 mg PO Q6H PRN nausea and 09/29/19 (Zofran) vomiting #60 tabs pen needle, diabetic 32 gauge x #100 ea 12/16/22" (BD Ultra-Fine [place]ry Pen Needle) sertraline 50 mg tablet 50 mg PO DAILY #90 tabs 02/13/24 metoprolol succinate 25 mg 12.5 mg (1/2 x 25 mg) PO DAILY #45 05/13/24 tablet,extended release 24 hr tabs atorvastatin 40 mg tablet 40 mg PO QPM #90 tabs 05/28/24 insulin glargine U-300 conc 300 27 unit (0.09 mL) subcut DAILY #9 08/18/24 unit/mL (1.5 mL) subcutaneous pen mL ([place] SoloStar U-300 Insulin) fluticasone 250 mcg-salmeterol 50 1 inh inhalation BID #60 ea 09/28/24 mcg/dose blistr powdr for inhalation omeprazole 40 mg capsule,delayed See Rx Instructions .Route 10/11/24 release .COMPLEX #90 caps albuterol sulfate 90 mcg/actuation 1 - 2 puff inhalation Q4H PRN 11/17/24 aerosol inhaler shortness of breath or wheezing #8.5 grams lancets 28 gauge (Comfort EZ #100 ea 12/14/24 Lancets) levothyroxine 100 mcg tablet 100 mcg PO DAILY #30 tabs 12/14/24 blood sugar diagnostic (FreeStyle #300 ea 12/15/24 Lite Strips) blood-glucose meter (FreeStyle #1 ea 12/15/24 [place] Lite kit) lancets 28 gauge (FreeStyle #300 ea 12/15/24 Lancets) Results & Data (ED) Vital Signs Vital Signs - 24 hr 01/31/25 11:21 01/31/25 11:24 01/31/25 13:47 Temperature 36.6 C Temperature Source Temporal Artery Scan Pulse Rate 68 Pulse Rate [Apical] 74 Respiratory Rate 18 16 Blood Pressure [Left Arm] 187/126 H 175/82 H Blood Pressure Mean [Left Arm] 146 113 Pulse Oximetry 99 100 Sepsis Recent Fever Within 48 Hours No Sepsis New/Unexplained Change in Mental Status N/A Sepsis Action Taken by Nursing No Action Required Laboratory Data 01/31/25 11:35 01/31/25 11:35 Administered Medications Discontinued Medications Acetaminophen (Ofirmev) 1,000 mg in 100 mls @ 400 mls/hr IV NOW STA Stop: 01/31/25 11:42 Last Infusion: 01/31/25 13:51 Dose: Infused Documented By: Admin: 01/31/25 11:34 Dose: 400 mls/hr Documented By: PHILIPPE Morphine Sulfate (Morphine Sulfate 2 Mg/Ml Carp) 2 mg IV NOW STA Stop: 01/31/25 12:09 Last Admin: 01/31/25 12:16 Dose: 2 mg Documented By: PHILIPPE Morphine Sulfate (Morphine Sulfate 2 Mg/Ml Carp) 2 mg IV NOW STA Stop: 01/31/25 13:27 Last Admin: 01/31/25 13:36 Dose: 2 mg Documented By: PHILIPPE Ondansetron HCl (Ondansetron Inj 2 Mg/Ml 2 Ml Vial) 4 mg IV NOW STA Stop: 01/31/25 12:09 Last Admin: 01/31/25 12:15 Dose: 4 mg Documented By: PHILIPPE Imaging Data Radiologist's Impression: Knee X-Ray 01/31/25 11:40 XR knee RT 3V CLINICAL HISTORY: Knee trauma, no prior imaging COMPARISON: None FINDINGS: There is moderate osteoarthritis. No fracture or dislocation seen. IMPRESSION: No fracture seen. ACT 112: Negative or not required by law. Electronically signed by: Evan Balderas M.D. 01/31/2025 12:17 PM Shoulder X-Ray 01/31/25 11:40 XR shoulder RT min 2V routine CLINICAL HISTORY: Shoulder trauma, no prior imaging COMPARISON: None FINDINGS: There is an acute minimally displaced fracture proximal right humerus involving the surgical neck and undermining the greater tuberosity. No dislocation seen at the right shoulder. IMPRESSION: Acute fracture proximal right humerus. ACT 112: Negative or not required by law. Electronically signed by: Evan Balderas M.D. 01/31/2025 12:[address] 01/31/25 13:26 CT SCAN OF THE CERVICAL SPINE CLINICAL HISTORY: Fall. COMPARISON STUDY: MRI of cervical spine dated 04/09/2011. TECHNIQUE: CT scan of the cervical spine is performed from the skull base to the upper thoracic spine. Images are reviewed in the axial, sagittal, and coronal planes. IV contrast was not administered for this examination. A dose lowering technique was utilized adhering to the principles of ALARA. FINDINGS: Skeletal structures: The skeletal structures are osteopenic. There is no evidence of fracture or subluxation involving the cervical spine. Vertebral body height and alignment are maintained. Anterior osteophytes are seen throughout. The odontoid process and lateral masses are intact. The atlantoaxial articulation is preserved noting productive degenerative change. The spinous processes appear intact. There are mild chronic compression present at T1 and T2. Mild multilevel facet arthropathy is noted. Intervertebral discs: There is moderate disc space narrowing at C3-C4 and C4-C5. Mild to moderate narrowing is seen at C5-C6 and C6-C7. Central canal: Posterior disc osteophyte complexes are seen at all cervical levels between C3-C4 and C6-C7. This likely contributes to multilevel acquired compromise of the central canal. Soft tissues: The prevertebral and paraspinous soft tissues are within normal limits. The thyroid gland is atrophic. Atherosclerotic calcification is seen in the carotid bulbs. Calvarium: The visualized calvarium at the skull base appears intact. Brain parenchyma: Partially visualized brain parenchyma at the skull base is within normal limits. Sinuses and mastoids: The visualized paranasal sinuses are clear. The mastoid air cells are well pneumatized. Lung apices: Clear as visualized. IMPRESSION: 1. There is no evidence of cervical spine fracture or subluxation. 2. Osteopenia and spondylotic change as above. ACT 112: Negative or not required by law. Electronically signed by: Tristan Chase M.D. 01/31/2025 2:[address] 01/31/25 13:[address] WITHOUT CONTRAST CLINICAL HISTORY: head injury, fall COMPARISON STUDY: Head CT March 21, 2018. TECHNIQUE: A maxillofacial CT was performed without IV contrast. Coronal and sagittal reformats were viewed. Automated exposure control was utilized for the study. A dose lowering technique was utilized adhering to the principles of ALARA. FINDINGS: The globes are intact with no retrobulbar hematoma. Alignment of the temporomandibular joints is anatomic. No acute facial fracture is identified. Orbital floors are intact. There is no skull base fracture. IMPRESSION: No acute facial fracture. ACT 112: Negative or not required by law. Electronically signed by: Darrin Daily M.D. 01/31/2025 2:[address] 01/31/25 13:26 CT head/brain wo con CLINICAL HISTORY: 89 years-old Female with closed head injury, fall. Acute head injury status post fall TECHNIQUE: Multiple axial CT images of the head were obtained without contrast. A dose lowering technique was utilized adhering to the principles of ALARA. COMPARISON: Head CT 03/21/2018 FINDINGS: No acute intracranial hemorrhage, midline shift, intracranial mass, hydrocephalus, territorial ischemia or abnormal extra-axial collection. Involutional changes with chronic microvascular ischemic disease and ex vacuo ventriculomegaly again noted, progressed from prior. The calvarium is intact. The paranasal sinuses, mastoid air cells, and middle ear cavities are clear. IMPRESSION: No acute intracranial abnormality or calvarial fracture. ACT 112: Negative or not required by law. The above report was generated using voice recognition software. It may contain grammatical, syntax or spelling errors. Electronically signed by: Daniel De La Torre M.D. 01/31/2025 2:21 PM Discharge Plan Visit Data Chief Complaint: Fall Stated Complaint: FALL, R SHOULDER PAIN, NOSE BLEED, CUT ON LIP ED Provider: Bethel Chaudhry ED Midlevel Provider: Susanne Shah Discharge Problem: Fall, Closed right humeral fracture, Acute pain of right knee, Facial abrasion, Closed head injury Patient Disposition: Admitted As Inpatient Condition: Good Forms Stand Alone Forms: My [facility] [id number] Prescriptions Prescriptions: No Action (DME) pen needle, diabetic [BD Ultra-Fine Merry Pen Needle] 32 gauge x 5/32" needle See Rx Instructions [id number] .MEDSUPPLY Qty: 100 3RF Rx Instructions: Inject insulin once daily sertraline 50 mg tablet 50 mg PO DAILY Qty: 90 3RF Patient Comments: HS metoprolol succinate 25 mg tablet extended release 24 hr 12.5 mg PO DAILY Qty: 45 3RF atorvastatin 40 mg tablet 40 mg PO QPM Qty: 90 3RF insulin glargine U-300 conc [[place] SoloStar U-300 Insulin] 300 unit/mL (1.5 mL) insulin pen 27 unit subcut DAILY Qty: 9 3RF fluticasone propion-salmeterol 250-50 mcg/dose blister with device 1 inh Inhalation BID Qty: 60 3RF omeprazole 40 mg capsule,delayed release(DR/EC) See Rx Instructions .ROUTE .COMPLEX Qty: 90 3RF Dose Instruction: Take 1 capsule by mouth in the morning Rx Instructions: Take 1 capsule by mouth in the morning albuterol sulfate 90 mcg/actuation HFA aerosol inhaler 1 - 2 puff inhalation Q4H PRN (Reason: shortness of breath or wheezing) Qty: 8.5 3RF (DME) blood-glucose meter [FreeStyle [place] Lite] Kit See Rx Instructions .Route Qty: 1 1RF Rx Instructions: use to test blood sugar as directed (DME) FreeStyle Lite Strips Strip See Rx Instructions .Route Qty: 300 3RF Rx Instructions: use to test blood sugar TID (DME) lancets [FreeStyle Lancets] 28 gauge misc See Rx Instructions .Route Qty: 300 3RF Rx Instructions: use to test blood sugar TID omega-3 acid ethyl esters 1 gram capsule 1 cap PO DAILY fluticasone propionate 50 mcg/actuation spray,suspension 1 - 2 sprays intranasal DAILY PRN (Reason: Congestion) Qty: 1 Patient Comments: 1-2 sprays in each nostril ondansetron HCl [Zofran] 4 mg tablet 4 mg PO Q6H PRN (Reason: nausea and vomiting) Qty: 60 1RF (DME) lancets [Comfort EZ Lancets] 28 gauge misc See Rx Instructions .Route Qty: 100 11RF Rx Instructions: Check Blood surgar 3 times daily levothyroxine 100 mcg tablet 100 mcg PO DAILY Qty: 30 8RF PreserVision AREDS [id number] Capsule 1 cap PO AMPM Patient Comments: PLANS TO START Referrals Referrals: Pro,Huber Aguayo MD [Primary Care Provider] -
--- NOTE | 2025-01-31 14:22 | CT Scan Report ---
CT head/brain wo con CLINICAL HISTORY: 89 years-old Female with closed head injury, fall. Acute head injury status post f all TECHNIQUE: Multiple axial CT images of the head were obtained without contrast. A dose lowering tech nique was utilized adhering to the principles of ALARA. COMPARISON: Head CT 03/21/2018 FINDINGS: No acute intracranial hemorrhage, midline shift, intracranial mass, hydrocephalus, territorial ischem ia or abnormal extra-axial collection. Involutional changes with chronic microvascular ischemic disea se and ex vacuo ventriculomegaly again noted, progressed from prior. The calvarium is intact. The paranasal sinuses, mastoid air cells, and middle ear cavities are clear . IMPRESSION: No acute intracranial abnormality or calvarial fracture. ACT 112: Negative or not required by law. The above report was generated using voice recognition software. It may contain grammatical, syntax o r spelling errors. Electronically signed by: Daniel De La Torre M.D. 01/31/2025 2:21 PM
--- NOTE | 2025-01-31 14:26 | CT Scan Report ---
CT SCAN OF THE CERVICAL SPINE CLINICAL HISTORY: Fall. COMPARISON STUDY: MRI of cervical spine dated 04/09/2011. TECHNIQUE: CT scan of the cervical spine is performed from the skull base to the upper thoracic spine . Images are reviewed in the axial, sagittal, and coronal planes. IV contrast was not administered fo r this examination. A dose lowering technique was utilized adhering to the principles of ALARA. FINDINGS: Skeletal structures: The skeletal structures are osteopenic. There is no evidence of fracture or subl uxation involving the cervical spine. Vertebral body height and alignment are maintained. Anterior os teophytes are seen throughout. The odontoid process and lateral masses are intact. The atlantoaxial a rticulation is preserved noting productive degenerative change. The spinous processes appear intact. There are mild chronic compression present at T1 and T2. Mild multilevel facet arthropathy is noted. Intervertebral discs: There is moderate disc space narrowing at C3-C4 and C4-C5. Mild to moderate analia rowing is seen at C5-C6 and C6-C7. Central canal: Posterior disc osteophyte complexes are seen at all cervical levels between C3-C4 and C6-C7. This likely contributes to multilevel acquired compromise of the central canal. Soft tissues: The prevertebral and paraspinous soft tissues are within normal limits. The thyroid gla nd is atrophic. Atherosclerotic calcification is seen in the carotid bulbs. Calvarium: The visualized calvarium at the skull base appears intact. Brain parenchyma: Partially visualized brain parenchyma at the skull base is within normal limits. Sinuses and mastoids: The visualized paranasal sinuses are clear. The mastoid air cells are well pneu matized. Lung apices: Clear as visualized. IMPRESSION: 1. There is no evidence of cervical spine fracture or subluxation. 2. Osteopenia and spondylotic change as above. ACT 112: Negative or not required by law. Electronically signed by: Tristan Chase M.D. 01/31/2025 2:23 PM
--- NOTE | 2025-01-31 14:31 | CT Scan Report ---
MAXILLOFACIAL CT WITHOUT CONTRAST CLINICAL HISTORY: head injury, fall COMPARISON STUDY: Head CT March 21, 2018. TECHNIQUE: A maxillofacial CT was performed without IV contrast. Coronal and sagittal reformats were viewed. Automated exposure control was utilized for the study. A dose lowering technique was utiliz ed adhering to the principles of ALARA. FINDINGS: The globes are intact with no retrobulbar hematoma. Alignment of the temporomandibular join ts is anatomic. No acute facial fracture is identified. Orbital floors are intact. There is no skull base fracture. IMPRESSION: No acute facial fracture. ACT 112: Negative or not required by law. Electronically signed by: Darrin Daily M.D. 01/31/2025 2:30 PM
--- NOTE | 2025-01-31 14:35 | Orthopedic Consultation ---
Date of Service January 31, 2025 Assessment & Plan (1) Closed fracture of right proximal humerus: * Case/imaging reviewed and discussed with Dr Weiss * Recommend sling and non-weight bearing on right upper extremity. * Disposition: TBD * Daily treatment: Physical Therapy/ Occupational Therapy per protocol * Weight bearing status: non weight bearing on right upper extremity * Pain control * Remainder care per primary team * Will plan for outpatient follow-up in 1-2 weeks to reevaluate. History of Present Illness Reason for Consultation: . Right proximal humerus fracture Requesting Physician: . .Patient is a 89 y/o female with right proximal humerus fracture. PMH including mitral valve regurgitation, hyperlipidemia, CAD, LBBB, hypertension, GERD, type 2 diabetes with use of insulin and hypothyroidism. Presents to hospital with right shoulder and facial pain after she sustain a fall today at the gas station. Current workup including x-ray of shoulder and knee and CT and head, c- spine and facial bones. Orthopedics consulted for management recommendations. At time of exam patient was laying on stretcher with head of bed elevated. Pt was placed into a sling and had ice on her right shoulder. Pt states her right shoulder is bothersome and asked that it not be moved. Pt states her pain is improved now some after medication given. Pt states she believes her face took the brunt of her fall. Allergies Allergy/AdvReac Type Severity Reaction Status Date / Time amoxicillin Allergy Intermediate RASH-ITCHIN Verified 01/07/25 11:19 G Penicillins Allergy Intermediate RASH-ITCHIN Verified 01/07/25 11:19 G Home Medications Medication Instructions Recorded Confirmed Type omega-3 acid ethyl esters 1 gram 1 cap PO DAILY 11/12/18 01/07/25 History capsule fluticasone propionate 50 1 - 2 sprays intranasal DAILY PRN 08/24/19 01/07/25 History mcg/actuation nasal Congestion #1 g spray,suspension ondansetron HCl 4 mg tablet 4 mg PO Q6H PRN nausea and 09/29/19 01/07/25 Rx (Zofran) vomiting #60 tabs vitamins A,C,B-aqem-bqcjmv 4,296 1 cap PO AMPM 12/25/21 01/07/25 History mcg-226 mg-90 mg capsule (PreserVision AREDS) pen needle, diabetic 32 gauge x #100 ea 12/16/22 01/07/25 Rx 5/32" (BD Ultra-Fine Merry Pen Needle) sertraline 50 mg tablet 50 mg PO DAILY #90 tabs 02/13/24 01/07/25 Rx metoprolol succinate 25 mg 12.5 mg (1/2 x 25 mg) PO DAILY #45 05/13/24 01/07/25 Rx tablet,extended release 24 hr tabs atorvastatin 40 mg tablet 40 mg PO QPM #90 tabs 05/28/24 01/07/25 Rx insulin glargine U-300 conc 300 27 unit (0.09 mL) subcut DAILY #9 08/18/24 01/07/25 Rx unit/mL (1.5 mL) subcutaneous pen mL ([place] SoloStar U-300 Insulin) fluticasone 250 mcg-salmeterol 50 1 inh inhalation BID #60 ea 09/28/24 01/07/25 Rx mcg/dose blistr powdr for inhalation omeprazole 40 mg capsule,delayed See Rx Instructions .Route 10/11/24 01/07/25 Rx release .COMPLEX #90 caps albuterol sulfate 90 mcg/actuation 1 - 2 puff inhalation Q4H PRN 11/17/24 01/07/25 Rx aerosol inhaler shortness of breath or wheezing #8.5 grams lancets 28 gauge (Comfort EZ #100 ea 12/14/24 01/07/25 Rx Lancets) levothyroxine 100 mcg tablet 100 mcg PO DAILY #30 tabs 12/14/24 01/07/25 Rx blood sugar diagnostic (FreeStyle #300 ea 12/15/24 01/07/25 Rx Lite Strips) blood-glucose meter (FreeStyle #1 ea 12/15/24 01/07/25 Rx [place] Lite kit) lancets 28 gauge (FreeStyle #300 ea 12/15/24 01/07/25 Rx Lancets) Past Med/Surg History Problem List (Updated 01/31/25 @ 14:33 by Inocencia Echavarria PA-C) Closed fracture of right proximal humerus Mitral regurgitation Pain in foot Anemia Hyperlipidemia Compression fracture Pyelonephritis (Acute) CAD (coronary artery disease) Hiatal hernia Vitamin D deficiency (Acute) S/P right coronary artery (RCA) stent placement (Acute) 5-6 YEARS AGO>FOLLOWS WITH DR. SARABIA Osteoarthritis (Acute) Mild persistent asthma (Acute) Left bundle branch block (Acute) Hypertension (Acute) Hearing loss (Acute) Gastroesophageal reflux disease (Acute) Dysphagia, pharyngeal phase (Acute) Arthralgia (Acute) Adjustment disorder with anxiety (Acute) Chronic pelvic pain in female Interstitial cystitis Hypothyroidism Obesity Type 2 diabetes mellitus, with long-term current use of insulin Depression Nausea & vomiting Lower abdominal pain Gastroparesis GERD (gastroesophageal reflux disease) Current use of proton pump inhibitor Medical History Fall Diarrhea Encounter for pre-operative examination Encounter for pre-operative examination Anxiety Hypothyroidism New onset type 1 diabetes mellitus, uncontrolled Asthma HAS NOT USED RESCUE INHALER RECENTLY Surgical History H/O total hysterectomy History of colonoscopy History of esophagogastroduodenoscopy (EGD) History of cholecystectomy History of repair of hiatal hernia History of tooth extraction History of cataract surgery S/P hernia repair Family History Mother Coronary heart disease Stroke Father Coronary heart disease Sister Diabetes Breast cancer Hypertension Brother Diabetes Other Cancer Heart disease Lung disease No family history of adverse response to anesthesia Denies family history of Ovarian cancer Prostate cancer Myocardial infarction Colorectal cancer Social History Smoking Status: Never smoker Second Hand Exposure: Yes ( A CHILD); Do You Dip or Chew Tobacco: No; Hx Alcohol Use: No Hx Substance Use: No Preferred Language: Ukrainian Communication Ability: Effective Visual Impairment: No Limitations Hosted Services Analyst Required: No Beliefs That Will Affect Care: None marital status: / Current Living Situation: Alone current occupational status: retired Feels Safe at Home: Yes Childhood Exposure to Second-Hand Smoke: Yes Dental Care, Regularly: Yes Physical Activity Frequency: 1-2 Times per Week Seatbelt Use: always Sunscreen Use: No Assistive Devices: None Review of Systems All systems reviewed & are unremarkable except as noted in HPI & below. Physical Exam * General: Alert and oriented, no acute distress * Constitutional: well-developed, well-nourished. * Respiratory: Normal respiratory effort, no distress * Gastrointestinal: No tenderness to palpation, no rigidity or guarding. * Skin: No rash or lesion. Abrasions noted to her nose and upper lip. * Neurologic: Grossly normal * Musculoskeletal: Right shoulder with tenderness and limited motion due to pain. Pts right arm is in sling resting across her chest. Otherwise neurovascularly intact. Results & Data Results & Data Laboratory Results . Laboratory Results - last 24 hr 01/31/25 11:35 WBC Pending RBC Pending Hgb Pending Hct Pending MCV Pending MCH Pending MCHC Pending Plt Count Pending PT Pending INR Pending APTT Pending PTT Ratio Pending Sodium Pending Potassium Pending Chloride Pending Carbon Dioxide Pending Anion Gap Pending BUN Pending Creatinine Pending Est Cr Clr Drug Dosing Pending eGFR Pending BUN/Creatinine Ratio Pending Glucose Pending Calcium Pending Total Bilirubin Pending AST Pending ALT Pending Alkaline Phosphatase Pending Total Protein Pending Albumin Pending Globulin Pending Albumin/Globulin Ratio Pending Diagnostic Findings Knee X-Ray 01/31/25 11:40 XR knee RT 3V CLINICAL HISTORY: Knee trauma, no prior imaging COMPARISON: None FINDINGS: There is moderate osteoarthritis. No fracture or dislocation seen. IMPRESSION: No fracture seen. ACT 112: Negative or not required by law. Electronically signed by: Evan Balderas M.D. 01/31/2025 12:17 PM Shoulder X-Ray 01/31/25 11:40 XR shoulder RT min 2V routine CLINICAL HISTORY: Shoulder trauma, no prior imaging COMPARISON: None FINDINGS: There is an acute minimally displaced fracture proximal right humerus involving the surgical neck and undermining the greater tuberosity. No dislocation seen at the right shoulder. IMPRESSION: Acute fracture proximal right humerus. ACT 112: Negative or not required by law. Electronically signed by: Evan Balderas M.D. 01/31/2025 12:[address] 01/31/25 13:26 CT SCAN OF THE CERVICAL SPINE CLINICAL HISTORY: Fall. COMPARISON STUDY: MRI of cervical spine dated 04/09/2011. TECHNIQUE: CT scan of the cervical spine is performed from the skull base to the upper thoracic spine. Images are reviewed in the axial, sagittal, and coronal planes. IV contrast was not administered for this examination. A dose lowering technique was utilized adhering to the principles of ALARA. FINDINGS: Skeletal structures: The skeletal structures are osteopenic. There is no evidence of fracture or subluxation involving the cervical spine. Vertebral body height and alignment are maintained. Anterior osteophytes are seen throughout. The odontoid process and lateral masses are intact. The atlantoaxial articulation is preserved noting productive degenerative change. The spinous processes appear intact. There are mild chronic compression present at T1 and T2. Mild multilevel facet arthropathy is noted. Intervertebral discs: There is moderate disc space narrowing at C3-C4 and C4-C5. Mild to moderate narrowing is seen at C5-C6 and C6-C7. Central canal: Posterior disc osteophyte complexes are seen at all cervical levels between C3-C4 and C6-C7. This likely contributes to multilevel acquired compromise of the central canal. Soft tissues: The prevertebral and paraspinous soft tissues are within normal limits. The thyroid gland is atrophic. Atherosclerotic calcification is seen in the carotid bulbs. Calvarium: The visualized calvarium at the skull base appears intact. Brain parenchyma: Partially visualized brain parenchyma at the skull base is within normal limits. Sinuses and mastoids: The visualized paranasal sinuses are clear. The mastoid air cells are well pneumatized. Lung apices: Clear as visualized. IMPRESSION: 1. There is no evidence of cervical spine fracture or subluxation. 2. Osteopenia and spondylotic change as above. ACT 112: Negative or not required by law. Electronically signed by: Tristan Chase M.D. 01/31/2025 2:[address] 01/31/25 13:[address] WITHOUT CONTRAST CLINICAL HISTORY: head injury, fall COMPARISON STUDY: Head CT March 21, 2018. TECHNIQUE: A maxillofacial CT was performed without IV contrast. Coronal and sagittal reformats were viewed. Automated exposure control was utilized for the study. A dose lowering technique was utilized adhering to the principles of ALARA. FINDINGS: The globes are intact with no retrobulbar hematoma. Alignment of the temporomandibular joints is anatomic. No acute facial fracture is identified. Orbital floors are intact. There is no skull base fracture. IMPRESSION: No acute facial fracture. ACT 112: Negative or not required by law. Electronically signed by: Darrin Daily M.D. 01/31/2025 2:[address] 01/31/25 13:26 CT head/brain wo con CLINICAL HISTORY: 89 years-old Female with closed head injury, fall. Acute head injury status post fall TECHNIQUE: Multiple axial CT images of the head were obtained without contrast. A dose lowering technique was utilized adhering to the principles of ALARA. COMPARISON: Head CT 03/21/2018 FINDINGS: No acute intracranial hemorrhage, midline shift, intracranial mass, hydrocephalus, territorial ischemia or abnormal extra-axial collection. Involutional changes with chronic microvascular ischemic disease and ex vacuo ventriculomegaly again noted, progressed from prior. The calvarium is intact. The paranasal sinuses, mastoid air cells, and middle ear cavities are clear. IMPRESSION: No acute intracranial abnormality or calvarial fracture. ACT 112: Negative or not required by law. The above report was generated using voice recognition software. It may contain grammatical, syntax or spelling errors. Electronically signed by: Daniel De La Torre M.D. 01/31/2025 2:21 PM . PG Care Time/CCT Total # of Minutes Spent Total Time Spent with Patient: Total time spent is greater than 50% in coordination of care (as documented) at patient's floor/unit and/or counseling patient: [place] [address] IN/OBS CONSULT LVL 3,45M Patient Type New Diagnoses Closed fracture of right proximal humerus S42.201A
[2025-01-31 15:20] LABS: Alanine Aminotransferase 19.0 U/L (7-52); Albumin Globulin Ratio 1.1 (0.9-2); Albumin Level 4.2 gm/dl (3.4-5.0); Alkaline Phosphatase 116.0 U/L (34-104); Anion Gap 11.0 (3-11); Bilirubin,Total 0.9 mg/dl (0.2-1.0); Blood Urea Nitrogen 19.0 mg/dl (6-23); Calcium 9.7 mg/dl (8.6-10.3); Carbon Dioxide 24.0 mmol/L (21-32); Chloride 98.0 mmol/L (98-107); Creatinine Clr Calc Pharmacy 54.3 ml/min; Globulin 3.8 gm/dl (2.5-4.0); Glucose 326.0 mg/dl (70-99(Fasting)); Potassium 4.4 mmol/L (3.5-5.1); Sodium 133.0 mmol/L (136-145); Total Protein 8.0 gm/dl (6.0-8.3)
[2025-01-31 15:24] LABS: INR 1.0 (0.9-1.1); Partial Thromboplastin Time 25 Seconds (21-31); Prothrombin Time 10.5 Seconds (9.0-12.0)
--- NOTE | 2025-01-31 15:25 | History & Physical Report ---
Date of Service January 31, 2025 Assessment & Plan (1) Closed right humeral fracture: Plan: Assessment: 1. Status post mechanical fall with injuries discussed below: 2. Closed head injury. CT of the head and cervical spine are negative. Including negative CT of the facial bones. Falls precautions. This was a mechanical fall she tripped over a mat at the gas station with the sole of her foot falling to the ground. 3. Mild facial abrasions. 4. Acute proximal right humeral fracture. Currently in a sling. Orthopedics evaluated. Nonsurgical. Pain control. We have ordered oxycodone as well as Tylenol. We have consulted physical therapy. Falls precautions. 5. diabetes mellitus. Ordered diabetic diet and insulin sliding scale will continue approximately half of her dose of Lantus. Titrate as needed. 6. Coronary artery disease remotely. No cardiac symptoms at this time. 7. Hypertension. Home meds as appropriate. 8. Dyslipidemia. Home meds as appropriate. 9. History of GERD. Continue home meds as appropriate. Plan: As discussed above. Please refer to orders for further planning. History of Present Illness Chief Complaint: Ground floor trip and fall to ground. Right arm pain. Primary Care Provider: Huber Gaviria MD Very pleasant 89-year-old female who lives at home alone and is very independent. She was pumping her gas in her car today when she had a trip and mechanical fall to the ground. She did strike her head and face. And landed on her right shoulder/arm. In the ER she had a negative CT of the neck/cervical spine negative CT of the head she also had a negative CT of her facial bones. She had a positive plain film right shoulder x-ray consistent with a proximal right humeral fracture. Orthopedics was consulted in the ER. Given the fact the patient lives at home alone and is has uncontrolled pain after 4 mg of morphine we been asked admit the patient observation status for PT consultation and pain control. Allergies Allergy/AdvReac Type Severity Reaction Status Date / Time amoxicillin Allergy Intermediate RASH-ITCHIN Verified 01/31/25 15:19 G Penicillins Allergy Intermediate RASH-ITCHIN Verified 01/31/25 15:19 G Home Medications Medication Instructions Recorded Confirmed Type omega-3 acid ethyl esters 1 gram 1 cap PO DAILY 11/12/18 01/31/25 History capsule fluticasone propionate 50 1 - 2 sprays intranasal DAILY PRN 08/24/19 01/31/25 History mcg/actuation nasal Congestion #1 g spray,suspension vitamins A,C,B-wbpj-ojqnvq 4,296 1 cap PO AMPM 12/25/21 01/31/25 History mcg-226 mg-90 mg capsule (PreserVision AREDS) pen needle, diabetic 32 gauge x #100 ea 12/16/22 01/07/25 Rx 5/32" (BD Ultra-Fine Merry Pen Needle) sertraline 50 mg tablet 50 mg PO DAILY #90 tabs 02/13/24 01/31/25 Rx metoprolol succinate 25 mg 12.5 mg (1/2 x 25 mg) PO DAILY #45 05/13/24 01/31/25 Rx tablet,extended release 24 hr tabs atorvastatin 40 mg tablet 40 mg PO QPM #90 tabs 05/28/24 01/31/25 Rx insulin glargine U-300 conc 300 27 unit (0.09 mL) subcut DAILY #9 08/18/24 01/31/25 Rx unit/mL (1.5 mL) subcutaneous pen mL ([place] SoloStar U-300 Insulin) fluticasone 250 mcg-salmeterol 50 1 inh inhalation BID #60 ea 09/28/24 01/31/25 Rx mcg/dose blistr powdr for inhalation albuterol sulfate 90 mcg/actuation 1 - 2 puff inhalation Q4H PRN 11/17/24 01/31/25 Rx aerosol inhaler shortness of breath or wheezing #8.5 grams lancets 28 gauge (Comfort EZ #100 ea 12/14/24 01/07/25 Rx Lancets) levothyroxine 100 mcg tablet 100 mcg PO DAILY #30 tabs 12/14/24 01/31/25 Rx blood sugar diagnostic (FreeStyle #300 ea 12/15/24 01/07/25 Rx Lite Strips) blood-glucose meter (FreeStyle #1 ea 12/15/24 01/07/25 Rx [place] Lite kit) lancets 28 gauge (FreeStyle #300 ea 12/15/24 01/07/25 Rx Lancets) omeprazole 40 mg capsule,delayed 40 mg PO QAM 01/31/25 01/31/25 History release ondansetron HCl 4 mg tablet 4 mg PO Q6H PRN NAUSEA/VOMITING 01/31/25 01/31/25 History Past Med/Surg History Problem List (Updated 01/31/25 @ 14:56 by Susanne Shah PA-C) Closed head injury (Acute) Facial abrasion (Acute) Acute pain of right knee (Acute) Closed right humeral fracture (Acute) Fall (Acute) Closed fracture of right proximal humerus Mitral regurgitation Pain in foot Anemia Hyperlipidemia Compression fracture Pyelonephritis (Acute) CAD (coronary artery disease) Hiatal hernia Vitamin D deficiency (Acute) S/P right coronary artery (RCA) stent placement (Acute) 5-6 YEARS AGO>FOLLOWS WITH DR. SARABIA Osteoarthritis (Acute) Mild persistent asthma (Acute) Left bundle branch block (Acute) Hypertension (Acute) Hearing loss (Acute) Gastroesophageal reflux disease (Acute) Dysphagia, pharyngeal phase (Acute) Arthralgia (Acute) Adjustment disorder with anxiety (Acute) Chronic pelvic pain in female Interstitial cystitis Hypothyroidism Obesity Type 2 diabetes mellitus, with long-term current use of insulin Depression Nausea & vomiting Lower abdominal pain Gastroparesis GERD (gastroesophageal reflux disease) Current use of proton pump inhibitor Medical History Fall Diarrhea Encounter for pre-operative examination Encounter for pre-operative examination Anxiety Hypothyroidism New onset type 1 diabetes mellitus, uncontrolled Asthma HAS NOT USED RESCUE INHALER RECENTLY Surgical History H/O total hysterectomy History of colonoscopy History of esophagogastroduodenoscopy (EGD) History of cholecystectomy History of repair of hiatal hernia History of tooth extraction History of cataract surgery S/P hernia repair Family History Mother Coronary heart disease Stroke Father Coronary heart disease Sister Diabetes Breast cancer Hypertension Brother Diabetes Other Cancer Heart disease Lung disease No family history of adverse response to anesthesia Denies family history of Ovarian cancer Prostate cancer Myocardial infarction Colorectal cancer Social History Smoking Status: Never smoker Second Hand Exposure: Yes ( A CHILD); Do You Dip or Chew Tobacco: No; Hx Alcohol Use: No Hx Substance Use: No Preferred Language: Divehi Communication Ability: Effective Visual Impairment: No Limitations Expediter Clerk Required: No Beliefs That Will Affect Care: None marital status: / Current Living Situation: Alone current occupational status: retired Feels Safe at Home: Yes Childhood Exposure to Second-Hand Smoke: Yes Dental Care, Regularly: Yes Physical Activity Frequency: 1-2 Times per Week Seatbelt Use: always Sunscreen Use: No Assistive Devices: None Review of Systems Review of Systems: A 10 point review of system was obtained and unless otherwise stated here or in history of present illness are negative and noncontributory to chief complaint. Physical Exam Physical Exam: In General: In general very pleasant 89-year-old female is alert and oriented x 3, exam. She denies any substance use or abuse. 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 HEENT: Normocephalic, multiple abrasions on the anterior face nose lips excetra. Pupils are equal round and reactive to light bilaterally. No scleral icterus no conjunctival injection external auditory canals are patent septum is in the midline nose is without discharge oral mucosa is pink and moist without lesion. NECK: Supple no rigidity no lymphadenopathy no thyromegaly no carotid bruits no JVD no masses. HEART: Regular rate and rhythm I do not appreciate any ectopy or rub. No murmur. LUNGS: Clear to auscultation bilaterally and anteriorly with no evidence of adventitious sounds/wheezes rales or rhonchi. ABDOMEN: Soft nontender, no rebound, no peritoneal signs, positive bowel sounds, no appreciable organomegaly. EXTREMITIES: Intact, no peripheral cyanosis, clubbing or edema. Right upper extremity is currently in a sling. The extremity is neurovascularly intact. NEUROLOGICAL: Other than described above, with the right arm weakness due to fracture, cranial nerves II through XII are grossly intact with no focal deficit elicited upon examination. Results & Data Results & Data Vital Signs (Past 12 Hours) Vital Signs Temp Pulse Pulse Resp BP Pulse Ox O2 Del Method 01/31/25 15:00 71 20 214/112 H 98 Room Air 01/31/25 13:47 74 16 175/82 H 100 01/31/25 11:24 187/126 H 01/31/25 11:21 36.6 C 68 18 99 Code Status & VTE Plan Code Status DO NOT RESUSCITATE. Discussed person with the patient. She states that this has been her wishes for many years. VTE Prophylaxis Plan VTE Prophylaxis will be ordered: Yes PG Care Time/CCT Total # of Minutes Spent Total Time Spent with Patient: Total time spent is greater than 50% in coordination of care (as documented) at patient's floor/unit and/or counseling patient: Coding Level of Care Code 73766 INT INP/OBS CARE 2/55MIN Diagnoses Closed right humeral fracture S42.301A
[2025-01-31 16:06] LABS: Hematocrit (blood only) 42.0 % (37.0-47.0); Hemoglobin 13.9 g/dl (12.0-16.0); Mean Corpuscular Hemoglobin 27.6 pg (25.0-34.0); Mean Corpuscular Volume 83.5 fL (80.0-100.0); RDW Standard Deviation 41.2 fL (36.4-46.3); Red Blood Count 5.03 M/uL (4.20-5.40); White Blood Count 7.95 K/ul (4.8-10.8)
[2025-01-31 16:45] LABS: ALC (manual) 3.82 K/uL (1.2-3.4); ANC (manual) 3.66 K/uL (1.4-6.5); Large Granular Lymph # (manua 1.83 K/uL; Large Granular Lymph % (manual) 23 %
[2025-01-31] MEDS ORDERED: ALBUTEROL HFA 8 GM INHALER INH PRN (17:13)
[2025-01-31] MEDS: ONDANSETRON INJ 2 MG/ML 2 ML VIAL IV PRN (18:52)
[2025-01-31] MEDS: ATORVASTATIN 40 MG TAB PO SCH (19:57)
[2025-01-31] MEDS: ACETAMINOPHEN 325 MG TAB PO PRN (19:57)
[2025-01-31] MEDS: METOPROLOL SUCC 25MG EXT REL TAB PO SCH (20:24)
[2025-02-01] MEDS: LEVOTHYROXINE SODIUM 100 MCG TABLET PO SCH (06:00)
[2025-02-01 08:06] LABS: Alanine Aminotransferase 17.0 U/L (7-52); Albumin Globulin Ratio 1.3 (0.9-2); Albumin Level 3.8 gm/dl (3.4-5.0); Alkaline Phosphatase 91.0 U/L (34-104); Anion Gap 8.0 (3-11); Bilirubin,Total 1.1 mg/dl (0.2-1.0); Blood Urea Nitrogen 15.0 mg/dl (6-23); Calcium 8.6 mg/dl (8.6-10.3); Carbon Dioxide 26.0 mmol/L (21-32); Chloride 98.0 mmol/L (98-107); Cholesterol 128.0 mg/dl (0-200); Creatinine Clr Calc Pharmacy 59.5 ml/min; Globulin 2.9 gm/dl (2.5-4.0); Glucose 260.0 mg/dl (70-99(Fasting)); HDL Cholesterol 34.0 mg/dl; Potassium 3.9 mmol/L (3.5-5.1); Sodium 132.0 mmol/L (136-145); Total Protein 6.7 gm/dl (6.0-8.3); Triglycerides 148.0 mg/dl (0-150)
[2025-02-01 08:10] VITALS: PULSE 67
[2025-02-01] MEDS: FLUTICASONE/VILANTEROL 200/25MCG 14 PUFFS/INHALER INH SCH (08:11)
[2025-02-01] MEDS: SERTRALINE HCL 50 MG TABLET PO SCH (08:12)
[2025-02-01] MEDS: LANTUS PER UNIT CHARGE SQ SCH (08:17)
[2025-02-01 08:18] LABS: Hematocrit (blood only) 37.7 % (37.0-47.0); Hemoglobin 12.6 g/dl (12.0-16.0); Mean Corpuscular Hemoglobin 27.8 pg (25.0-34.0); Mean Corpuscular Volume 83.0 fL (80.0-100.0); RDW Standard Deviation 41.6 fL (36.4-46.3); Red Blood Count 4.54 M/uL (4.20-5.40); White Blood Count 8.68 K/ul (4.8-10.8)
[2025-02-01 08:20] LABS: Thyroid Stimulating Hormone 2.031 uIu/ml (0.300-4.500)
[2025-02-01 08:23] LABS: Immature Granulocytes # (auto) 0.03 K/uL (0.01-0.20); Immature Granulocytes % (auto) 0.3 %
[2025-02-01] MEDS ORDERED: CARBOHYDRATES FOR HYPOGLYCEMIA PO PRN (08:42)
[2025-02-01] MEDS ORDERED: GLUCOSE 40% GEL 15 GM TUBE PO PRN (08:42)
[2025-02-01] MEDS ORDERED: DEXTROSE 50% 50 ML SYRINGE IV PRN (08:42)
[2025-02-01] MEDS ORDERED: GLUCOSE 10 TAB/TUBE PO PRN (08:42)
[2025-02-01] MEDS ORDERED: GLUCAGON FOR INJ 1 MG VIAL SQ PRN (08:42)
[2025-02-01] MEDS ORDERED: METOPROLOL SUCC 25MG EXT REL TAB PO SCH (09:00)
[2025-02-01] MEDS: LANTUS PER UNIT CHARGE SQ ONE (09:18)
[2025-02-01] MEDS: INSULIN ASPART PER UNIT CHARGE SC SCH ×2 (09:18→11:58)
[2025-02-01 10:13] LABS: Hemoglobin A1C 8.6 % (4.5-5.6)
[2025-02-01] MEDS ORDERED: POLYETHYLENE (MIRALAX) 17 GM PACK PO PRN (10:32)
[2025-02-01] MEDS: ACETAMINOPHEN 500 MG TAB PO SCH (11:08)
[2025-02-01 12:01] LABS: Appearance Urine Cloudy (Clear); Bacteria Urine Automated 4+ (None Seen); Cast Urine Automated 0-2 /lpf (0-2); Epithelial Cell Urine Auto 0-2 /hpf (0-2); Glucose Urine UA 2+ (Negative); RBC Urine Automated >20 /hpf (0-2); WBC Urine Automated >50 /hpf (0-5)
--- NOTE | 2025-02-01 14:04 | Discharge Summary ---
Discharge Summary Date of Service February 01, 2025 Principal Dx & Hospital Course #1 = Principal Diagnosis (1) Closed right humeral fracture: (2) Vitamin D deficiency: (3) UTI (urinary tract infection): (4) Type 2 diabetes mellitus, with long-term current use of insulin: Plan #Right Humeral Fracture | Vit D deficiency | UTI Casandra is an 89-year-old female with a past medical history of CAD, hypertension, dyslipidemia, GERD, diabetes mellitus type 2 who presents to the ER after a fall. Reports she woke up feeling normal and was getting gas and tripped on her way at the gas station fell landing on her shoulder and knee and did hit her head. CT of the head and cervical spine were negative. Imaging did reveal a acute proximal right humerus fracture. She was evaluated by orthopedics who recommended nonoperative management, placement sling. Recommended follow-up in 1 to 2 weeks. She did have a urinalysis that was concerning for infection, while she denies fever chills or illness symptoms this could have been extremity in the fall. Discussed with pharmacy will give a one- time dose of fosfomycin to treat her prior cultures. Patient would not like to go to rehab and will be staying with her granddaughter and her she who works from home and will have follow-up in that area. No lifting with the right arm and no driving until cleared by orthopedics. Pain control: Scheduled Tylenol, as needed oxycodone. Vitamin D level checked two months ago and low - started on PO supplementation. Recommend DEXA/osteoporosis treatment. #Diabetes mellitus type 2continue home medications. Her A1c was checked and is 8.6 which is higher than her previous, recommend follow-up with endocrinology for further blood sugar adjustments. #HLD - continue statin Dispo: discharge to home with [facility] Notes For Next Care Provider recommend DEXA/osteoporosis workup Admission HPI Per Admitting Provider Very pleasant 89-year-old female who lives at home alone and is very independent. She was pumping her gas in her car today when she had a trip and mechanical fall to the ground. She did strike her head and face. And landed on her right shoulder/arm. In the ER she had a negative CT of the neck/cervical spine negative CT of the head she also had a negative CT of her facial bones. She had a positive plain film right shoulder x-ray consistent with a proximal right humeral fracture. Orthopedics was consulted in the ER. Given the fact the patient lives at home alone and is has uncontrolled pain after 4 mg of morphine we been asked admit the patient observation status for PT consultation and pain control. Discharge Exam General: NAD, VS as above Resp: normal respiratory effort, lungs clear to auscultation CV: RRR, no murmur, Abd: normal bowel sounds, non tender, soft Extremities: right arm in sling, able to wiggle fingers, cap refill less than 2 seconds, good radial/ulnar pulses Neuro: A&O x3, Skin: intact, no lesions noted Discharge Plan Discharge Items Patient Disposition: Home - Self-Care Reason For Visit: FALL FX R HUM Discharge Diagnosis: Humerus Facture Condition on Discharge: Good Activity: As commented below Activity Comment: keep right arm in sling, nonweight bearing Non-emergency contact: Primary Care Provider Call non-emergency contact if: you have any medication questions, your symptoms worsen, your pain is not controlled and your temperature is above 101.5 Follow-up/Referrals: Pro,Huber Aguayo MD [Primary Care Provider] - Diet: Carb Consistent or DM2 Addtl Attending Provider Instructions: Ms. Thierry Linares were hospitalized after a fall resulting in a humerus fracture. You were seen by orthopedics who recommend non operative management - keep arm in sling for comfort and and nonweightbearing and no lifting. Pain control with scheduled Tylenol every 8 hours and oxycodone as needed for breakthrough pain. Ice can also be helpful. Monitor for constipation - this is a common side effect with narcotic pain medication. Do not drive until cleared by orthopedics. There was also concerns that your UTI contributed to the fall, you were given a one time dose of medication that will complete the whole course of treatment. You have also been started on Vitamin D supplementation to help your bones. You should discuss with your orthopedic doctor or PCP about possible workup and treatment for osteoporosis. It is recommended you follow up with orthopedics in 1-2 weeks. Here is the number for [facility] - [phone]. A referral has been sent, but if you do not hear from them by Friday, please call the number above. Your A1c was checked and 8.6, which is higher than previous. Continue to work with endocrinology to adjust your regimen for better blood sugar control. Activity: You can do normal everyday activities as your body allows. Take rest breaks if you feel tired. Do not overexert. Stop activity if you have pain, shortness of breath or feel dizzy. Follow-up appointments: Make an appointment with your primary care physician within one week of discharge. A copy of this summary will be sent to them. Every time you see your primary care physician, or any other doctor, bring your medication list, and a list of questions. CONTACT YOUR PRIMARY CARE PROVIDER if you experience any of the following: Shortness of breath or difficulty breathing Fevers or chills Feeling tired with normal activity or experiencing dizziness or fainting Difficulty following your treatment plan, or difficulty taking medications Contact orthopedics - pain is not controlled with oral pain medications - numbness and tingling down the arm that does not go away - discoloration /purple color to your fingers CALL 911 OR GO TO THE EMERGENCY DEPARTMENT if you experience any of the following: Severe abdominal pain or nausea/vomiting Severe chest pain, or chest pain that radiates (moves) to your jaw or arm Sudden, severe shortness of breath or difficulty breathing Thank you for allowing us to participate in your care. Pending Studies at Discharge: Yes Studies:: urine culture Stand-Alone Forms: [email or web address], Smoking Cessation Medications and DC Order Prescriptions: New oxycodone 5 mg Tablet 5 mg PO Q4H PRN (Reason: pain) 3 Days Qty: 18 0RF ergocalciferol (vitamin D2) 1,250 mcg (50,000 unit) capsule 1,250 mcg PO DAILY Qty: 30 0RF Continued (DME) pen needle, diabetic [BD Ultra-Fine Merry Pen Needle] 32 gauge x 5/32" needle See Rx Instructions [id number] .MEDSUPPLY Qty: 100 3RF Rx Instructions: Inject insulin once daily sertraline 50 mg tablet 50 mg PO DAILY Qty: 90 3RF Patient Comments: HS metoprolol succinate 25 mg tablet extended release 24 hr 12.5 mg PO DAILY Qty: 45 3RF atorvastatin 40 mg tablet 40 mg PO QPM Qty: 90 3RF insulin glargine U-300 conc [Toujeo SoloStar U-300 Insulin] 300 unit/mL (1.5 mL) insulin pen 27 unit subcut DAILY Qty: 9 3RF fluticasone propion-salmeterol 250-50 mcg/dose blister with device 1 inh Inhalation BID Qty: 60 3RF albuterol sulfate 90 mcg/actuation HFA aerosol inhaler 1 - 2 puff inhalation Q4H PRN (Reason: shortness of breath or wheezing) Qty: 8.5 3RF (DME) blood-glucose meter [FreeStyle [place] Lite] Kit See Rx Instructions .Route Qty: 1 1RF Rx Instructions: use to test blood sugar as directed (DME) FreeStyle Lite Strips Strip See Rx Instructions .Route Qty: 300 3RF Rx Instructions: use to test blood sugar TID (DME) lancets [FreeStyle Lancets] 28 gauge misc See Rx Instructions .Route Qty: 300 3RF Rx Instructions: use to test blood sugar TID omega-3 acid ethyl esters 1 gram capsule 1 cap PO DAILY fluticasone propionate 50 mcg/actuation spray,suspension 1 - 2 sprays intranasal DAILY PRN (Reason: Congestion) Qty: 1 Patient Comments: 1-2 sprays in each nostril (DME) lancets [Comfort EZ Lancets] 28 gauge misc See Rx Instructions .Route Qty: 100 11RF Rx Instructions: Check Blood surgar 3 times daily levothyroxine 100 mcg tablet 100 mcg PO DAILY Qty: 30 8RF PreserVision AREDS [id number] Capsule 1 cap PO AMPM Patient Comments: PLANS TO START ondansetron HCl [Zofran] 4 mg Tablet 4 mg PO Q6H PRN (Reason: NAUSEA/VOMITING) omeprazole 40 mg capsule,delayed release(DR/EC) 40 mg PO QAM Rx Instructions: Take 1 capsule by mouth in the morning Discharge Orders: Discharge Order (Routine); Ordered 02/01/25 Ordered By: Nini Kaba/Other Patient Handouts: How Bones Heal, Understanding a Humerus Fracture Admission Data Admit Date/Time: 01/31/25 15:15 Attending Provider: Eduardo Hurt Admit Provider: Joe Graham Primary Care Provider: Huber Gaviria Other Providers: Jeo Graham; Shaquille Weiss Hospital Stay Data Consultations 01/31/25 14:46 ED Decision to Admit Stat 01/31/25 15:14 Consult Orthopedic Surgery Routine Diagnostic Imagining Performed Knee X-Ray 01/31/25 11:40 XR knee RT 3V CLINICAL HISTORY: Knee trauma, no prior imaging COMPARISON: None FINDINGS: There is moderate osteoarthritis. No fracture or dislocation seen. IMPRESSION: No fracture seen. ACT 112: Negative or not required by law. Electronically signed by: Evan Balderas M.D. 01/31/2025 12:17 PM Shoulder X-Ray 01/31/25 11:40 XR shoulder RT min 2V routine CLINICAL HISTORY: Shoulder trauma, no prior imaging COMPARISON: None FINDINGS: There is an acute minimally displaced fracture proximal right humerus involving the surgical neck and undermining the greater tuberosity. No dislocation seen at the right shoulder. IMPRESSION: Acute fracture proximal right humerus. ACT 112: Negative or not required by law. Electronically signed by: Evan Balderas M.D. 01/31/2025 12:[address] 01/31/25 13:26 CT SCAN OF THE CERVICAL SPINE CLINICAL HISTORY: Fall. COMPARISON STUDY: MRI of cervical spine dated 04/09/2011. TECHNIQUE: CT scan of the cervical spine is performed from the skull base to the upper thoracic spine. Images are reviewed in the axial, sagittal, and coronal planes. IV contrast was not administered for this examination. A dose lowering technique was utilized adhering to the principles of ALARA. FINDINGS: Skeletal structures: The skeletal structures are osteopenic. There is no evidence of fracture or subluxation involving the cervical spine. Vertebral body height and alignment are maintained. Anterior osteophytes are seen throughout. The odontoid process and lateral masses are intact. The atlantoaxial articulation is preserved noting productive degenerative change. The spinous processes appear intact. There are mild chronic compression present at T1 and T2. Mild multilevel facet arthropathy is noted. Intervertebral discs: There is moderate disc space narrowing at C3-C4 and C4-C5. Mild to moderate narrowing is seen at C5-C6 and C6-C7. Central canal: Posterior disc osteophyte complexes are seen at all cervical levels between C3-C4 and C6-C7. This likely contributes to multilevel acquired compromise of the central canal. Soft tissues: The prevertebral and paraspinous soft tissues are within normal limits. The thyroid gland is atrophic. Atherosclerotic calcification is seen in the carotid bulbs. Calvarium: The visualized calvarium at the skull base appears intact. Brain parenchyma: Partially visualized brain parenchyma at the skull base is within normal limits. Sinuses and mastoids: The visualized paranasal sinuses are clear. The mastoid air cells are well pneumatized. Lung apices: Clear as visualized. IMPRESSION: 1. There is no evidence of cervical spine fracture or subluxation. 2. Osteopenia and spondylotic change as above. ACT 112: Negative or not required by law. Electronically signed by: Tristan Chase M.D. 01/31/2025 2:[address] 01/31/25 13:[address] WITHOUT CONTRAST CLINICAL HISTORY: head injury, fall COMPARISON STUDY: Head CT March 21, 2018. TECHNIQUE: A maxillofacial CT was performed without IV contrast. Coronal and sagittal reformats were viewed. Automated exposure control was utilized for the study. A dose lowering technique was utilized adhering to the principles of ALARA. FINDINGS: The globes are intact with no retrobulbar hematoma. Alignment of the temporomandibular joints is anatomic. No acute facial fracture is identified. Orbital floors are intact. There is no skull base fracture. IMPRESSION: No acute facial fracture. ACT 112: Negative or not required by law. Electronically signed by: Darrin Daily M.D. 01/31/2025 2:[address] 01/31/25 13:26 CT head/brain wo con CLINICAL HISTORY: 89 years-old Female with closed head injury, fall. Acute head injury status post fall TECHNIQUE: Multiple axial CT images of the head were obtained without contrast. A dose lowering technique was utilized adhering to the principles of ALARA. COMPARISON: Head CT 03/21/2018 FINDINGS: No acute intracranial hemorrhage, midline shift, intracranial mass, hydrocephalus, territorial ischemia or abnormal extra-axial collection. Involutional changes with chronic microvascular ischemic disease and ex vacuo ventriculomegaly again noted, progressed from prior. The calvarium is intact. The paranasal sinuses, mastoid air cells, and middle ear cavities are clear. IMPRESSION: No acute intracranial abnormality or calvarial fracture. ACT 112: Negative or not required by law. The above report was generated using voice recognition software. It may contain grammatical, syntax or spelling errors. Electronically signed by: Daniel De La Torre M.D. 01/31/2025 2:21 PM Pending Results Patient Have Any Pending Studies at Discharge: Yes Discharge Instructions Given to Patient (Per Discharging Provider) Ms. Thierry Linares were hospitalized after a fall resulting in a humerus fracture. You were seen by orthopedics who recommend non operative management - keep arm in sling for comfort and and nonweightbearing and no lifting. Pain control with scheduled Tylenol every 8 hours and oxycodone as needed for breakthrough pain. Ice can also be helpful. Monitor for constipation - this is a common side effect with narcotic pain medication. Do not drive until cleared by orthopedics. There was also concerns that your UTI contributed to the fall, you were given a one time dose of medication that will complete the whole course of treatment. You have also been started on Vitamin D supplementation to help your bones. You should discuss with your orthopedic doctor or PCP about possible workup and treatment for osteoporosis. It is recommended you follow up with orthopedics in 1-2 weeks. Here is the number for [facility] - [phone]. A referral has been sent, but if you do not hear from them by Friday, please call the number above. Your A1c was checked and 8.6, which is higher than previous. Continue to work with endocrinology to adjust your regimen for better blood sugar control. Activity: You can do normal everyday activities as your body allows. Take rest breaks if you feel tired. Do not overexert. Stop activity if you have pain, shortness of breath or feel dizzy. Follow-up appointments: Make an appointment with your primary care physician within one week of d ischarge. A copy of this summary will be sent to them. Every time you see your primary care physician, or any other doctor, bring your medication list, and a list of questions. CONTACT YOUR PRIMARY CARE PROVIDER if you experience any of the following: Shortness of breath or difficulty breathing Fevers or chills Feeling tired with normal activity or experiencing dizziness or fainting Difficulty following your treatment plan, or difficulty taking medications Contact orthopedics - pain is not controlled with oral pain medications - numbness and tingling down the arm that does not go away - discoloration /purple color to your fingers CALL 911 OR GO TO THE EMERGENCY DEPARTMENT if you experience any of the following: Severe abdominal pain or nausea/vomiting Severe chest pain, or chest pain that radiates (moves) to your jaw or arm Sudden, severe shortness of breath or difficulty breathing Thank you for allowing us to participate in your care. Total Time Total Time Spent Total Time Spent (In Minutes): Time spent day of discharge 40 minutes including direct patient care, medication reconciliation, documentation, review of labs and images, and coordination of care. case discussed with case management Coding Level of Care Code 46153 INP/OBS DISCH >30 MIN Diagnoses Closed right humeral fracture S42.301A Vitamin D deficiency E55.9 UTI (urinary tract infection) N39.0 Type 2 diabetes mellitus, with long-term current use of insulin E11.9; Z79.4
[2025-02-01] MEDS: CHOLECALCIFEROL 125 MCG (5,000 UNITS) TAB PO SCH (14:14)
[2025-02-01] MEDS: FOSFOMYCIN TROMETHAMINE 3 GM PACKET PO ONE (14:15)
[2025-02-01 14:56] VITALS: BP 151/78; RESP 16; TEMP 98.6; O2SAT 98
[2025-02-02] MEDS ORDERED: LANTUS PER UNIT CHARGE SQ SCH (09:00)
--- NOTE | 2025-02-02 12:26 | Electrocardiogram Report ---
Test Reason : Blood Pressure : */* mmHG Vent. Rate : 64 BPM Atrial Rate : 64 BPM P-R Int : 144 ms QRS Dur : 136 ms QT Int : 466 ms P-R-T Axes : 76 58 92 degrees QTcB Int : 480 ms Normal sinus rhythm with sinus arrhythmia Left bundle branch block Abnormal ECG When compared with ECG of 18-Nov-2021 07:01, Premature atrial complexes are no longer Present Confirmed by Huber Mathews ([id number]) on 02/02/2025 12:26:44 PM Referred By: REFERRED SELF Confirmed By: Huber Mathews
== END 2025-02-01 16:42 | disposition home or self-care (01) ==
LOC: ED 11:19 → 3E 11:19 → SUATTDRO 15:15 → 3E 16:50